=== PATIENT | female | born 2005 | race Two or more races ===

== ENCOUNTER 2024-07-16 14:28 | Emergency (ER) | payer MEDICAID, SELFPAY ==
[2024-07-16 14:30] VITALS: BMI 29.2
[2024-07-16 14:54] VITALS: BP 113/76; PULSE 96; RESP 18; TEMP 36.8; O2SAT 99
--- NOTE | 2024-07-16 14:59 | XR_ITS ---
Examination: Complete OB ultrasound, less than 14 weeks, transabdominal Date and time of exam: July 16, 2024 1511 hours INDICATIONS: Hyperemesis this month Technique: Obstetrical ultrasound images less than 14 weeks performed via transabdominal imaging Findings: A normal shaped single intrauterine gestation is present in the uterus. Uterus 9.6 x 7.3 x 9.9 cm pole 6.4 cm corresponds to 12 weeks 5 day gestational age Cardiac motion 169 bpm Adjacent small subchorionic hemorrhage 25 x 7 x 26 mm Ultrasonographic survey of visible and placental structures unremarkable. Amniotic fluid volume appears appropriate for this estimated gestational age. Right ovary 2.7 x 1.3 x 1.9 cm arterial flow Left ovary 3.1 x 1.6 x 2.1 cm arterial flow IMPRESSION: . Viable intrauterine gestation 12 weeks 5 days, recommend short-term follow-up pelvic sonography given the patient's subchorionic hemorrhage
--- NOTE | 2024-07-16 15:00 | PD.EDRME ---
Rapid Medical Screening Exam RME Arrival date/time: 07/16/24 14:28 18-year-old female presents emergency department today with complaints of nausea vomiting patient reports being approximately 13 weeks Chief Complaint: Nausea/Vomiting/Diarrhea Time Seen by Provider: 07/16/24 14:38 Vital signs: Vital Signs Temperature 98.3 F 07/16/24 14:54 Pulse Rate 96 07/16/24 14:54 Respiratory Rate 18 07/16/24 14:54 Blood Pressure 113/76 07/16/24 14:54 Pulse Oximetry (%) 99 07/16/24 14:54 Oxygen Delivery Method Room Air 07/16/24 14:54
[2024-07-16] MEDS: METOCLOPRAMIDE INJ 5 MG/ML VIAL 2 ML 10 MG IM (15:05)
[2024-07-16 16:14] LABS: Basophils % (Auto) 1 % (0-2.5); Eosinophils # (Auto) 0.1 Thou/mm3 (0.0-0.5); Eosinophils % (Auto) 1 % (0-10); Hematocrit 34.8 % (36.0-46.0); Hemoglobin 11.5 g/dL (12.0-16.0); Immature Granulocytes % (Auto) 0 % (0-0); Immature Granulocytes Auto 0.02 Thou/mm3 (0.00-0.00); Lymphocytes # (Auto) 1.2 Thou/mm3 (1.0-4.8); Lymphocytes % (Auto) 20 % (10-50); Mean Corpuscular Hemoglobin 24.7 pg (25.0-35.0); Mean Corpuscular Volume 75 fL (80-100); Monocytes # (Auto) 0.7 Thou/mm3 (0.0-0.8); Monocytes % (Auto) 11 % (0-12); Neutrophils % (Auto) 67 % (37-80); Nucleated Red Blood Cell % 0 /100 WBC (0); Platelet Count 252 Thou/mm3 (140-440); RDW Standard Deviation 41.3 fL (36.4-46.3); Red Blood Count 4.65 Miln/mm3 (4.00-5.20)
[2024-07-16 16:32] LABS: Collection Type, Urine Clean Catch
[2024-07-16 16:38] LABS: Alanine Aminotransferase 11 U/L (10-49); Albumin, Serum 4.6 gm/dL (3.5-5.0); Albumin/Globulin Ratio 1.5 (1.2-2.2); Alkaline Phosphatase 64 U/L (46-116); Anion Gap 10 (7-16); BUN/Creatinine Ratio 12 Ratio (12-20); Bilirubin,Total 0.3 mg/dL (0.3-1.2); Blood Urea Nitrogen 7 mg/dL (9-23); Calcium 9.8 mg/dL (8.3-10.6); Calcium (Corrected) 9.8 mg/dL (8.5-10.1); Chloride 101 mMol/L (98-107); Creatinine (Component) 0.6 mg/dL (0.6-1.3); Estimated Creatinine Clearance 144.9 mL/min (>60); Globulin 3.1 gm/dL (2.3-3.5); Glucose 87 mg/dL (74-106); Osmolality,Calculated 263 (275-295); Potassium 3.9 mMol/L (3.4-5.1); Sodium 133 mMol/L (136-145); Total Protein 7.7 gm/dL (5.7-8.2); eGFR > 60 See Note
[2024-07-16 16:55] LABS: Bacteria,Urine Rare; Bilirubin,Urine Negative (Negative); Blood,Urine Negative (Negative); Clarity,Urine Clear (Clear/Hazy); Color,Urine Yellow (Lt Yel-Yel); Glucose, Urine Negative (Negative); Hyaline Casts,Urine < 1 /hpf (0-1); Ketones,Urine 2+ (Negative); Leukocyte Esterase,Urine Negative (Negative); Nitrite,Urine Negative (Negative); PH,Urine 6.5 (5.0-7.0); Protein,Urine Trace (Neg - Trace); RBC,Urine 2 /hpf (0-3); Specific Gravity,Urine 1.025 (1.001-1.035); Squamous Epithelial Cell,Urine 3 /hpf (0-5); WBC,Urine 4 /hpf (0-5)
[2024-07-16 17:14] LABS: Aspartate Amino Transferase 13 U/L (0-34); Beta HCG,Quantitative 104430 mIU/mL (<5.0)
[2024-07-16 17:16] VITALS: BP 127/70; PULSE 99; RESP 18; TEMP 36.7; O2SAT 97
--- NOTE | 2024-07-16 17:35 | EDNOTE_ITS ---
ED General RME/HPI General Chief complaint: Nausea/Vomiting/Diarrhea Stated complaint: Morning sickness 13 weeks, Time Seen by Provider: 07/16/24 14:38 Arrival date/time: 07/16/24 14:28 CC: Nausea vomiting HPI patient is a G2, P1 at 13 weeks states she has had persistent nausea vomiting but a worsened episode in the past 24 hours. Patient states she was told to use the Zofran sparingly which she says she has used only once in the past 2 to 3 days. Patient is pasty looking but at the time of exam she had been received a shot of Reglan, and states that her nausea has abated. Patient denies chest pain fever chills nausea vomiting vaginal bleeding or vaginal discharge. No abdominal pain or back pain. RME / HPI RME / HPI narrative: 07/16/24 14:28 18-year-old female presents emergency department today with complaints of nausea vomiting patient reports being approximately 13 weeks Related Data Previous Rx's ?Medication ?Instructions ?Recorded prenat.vits,onel,[id number] 1 tab PO QDAY #30 tabs 03/02/22 metoclopramide HCl 10 mg tablet 10 mg PO Q6H PRN nausea and 07/16/24 (Reglan) vomiting #20 tabs Allergies Allergy/AdvReac Type Severity Reaction Status Date / Time No Known Allergies Allergy Verified 09/07/22 15:51 Review of Systems Review of Systems Narrative Review of Systems: GEN: No fever, no chills, no weight loss EYES: No discharge, no visual changes, no pain HEENT: No ear pain, no congestion, no sore throat PULM: No shortness of breath, no cough, no congestion CV: No chest pain, no dyspnea on exertion, no palpitations GI: + nausea, + vomiting, no diarrhea, no pain, no constipation : No frequency, no urgency, no dysuria MUSC/SKEL: No joint pain, no back pain SKIN: No rash PSYCH: No hallucinations, no depression HEME/LYMPH: No easy bleeding or bruising tendencies NEURO: No weakness, no headache Past Medical History Past Medical History NEUROLOGIC: Negative Neurological Disorders or Seizures CARDIAC: Negative Cardiac Disorders or Congestive Heart Failure RESPIRATORY: Negative Chronic Obstructive Pulmonary Disease (COPD) GASTROINTESTINAL: Negative Gastrointestinal Disorders, Hepatitis or Colorectal Cancer GENITOURINARY: Negative Genitourinary Disorders, Renal Disease or Prostate Cancer REPRODUCTIVE: Negative Breast Cancer, Pelvic Inflammatory Disease or Testicular Cancer MUSCULOSKELETAL: Negative Musculoskeletal Disorders or Bone Cancer ENDOCRINE: Negative Endocrine Disorders, Diabetes Mellitus Type 1 or Diabetes Mellitus Type 2 HEMATOLOGIC: Positive Anemia; Negative Blood Disorders PSYCHO/SOCIAL: Positive Psychiatric Problems, Depression, Anxiety, Behavior Problems, Self-Mutilation and Post Traumatic Stress Disorder; Negative Schizophrenia, Recreational Drug Use, Attention Deficit Disorder, Attention Deficit Hyperactivity Disorder, Depression or Eating Disorder OTHER HISTORY: Positive Hospitalization (2018 [id number] hold dts suicide attempt and thoughs); Negative Autoimmune Disease, Down Syndrome, Autism, Developmental Delay, Shingles, Falls, Blood Transfusions, Blood Transfusion Reaction, Anesthesia Reactions, Organ Transplant, Chemotherapy, Radiation Therapy, Hyperbaric Therapy, MRSA, VRSA, Vancomycin-Resistant Enterococci, Human Immunodeficiency Virus (HIV), Chicken Pox, Measles, Mumps, Rubella (Turkish Measles), Pertussis, Clostridium Difficile, Cancer, Breast Cancer, Cervical Cancer, Colorectal Cancer, Lung Cancer, Ovarian Cancer, Prostate Cancer or Testicular Cancer Family History FAMILY HISTORY: Negative Family Psychiatric Problems, Family Respiratory Disorders, Family Cardiac Disorders, Family Gastrointestinal Problems, Family Cancer, Family Surgery or Family Anesthesia Reaction Surgical History SURGICAL: Positive Section; Negative Organ Transplant Social History SMOKING STATUS: Never smoker SECOND HAND EXPOSURE: No SUBSTANCE USE: marijuana (Had used marijuana before) ED Exam Narrative Physical exam: [General: Mild discomfort not in any acute distress Head normocephalic HEENT: Within acceptable limits Neck is supple nontender Chest equal chest rise nontender to palpation Respiratory: Clear to auscultation no wheezes crackles or rubs CV: Rate rhythm is regular no murmurs rubs or clicks Abdomen is soft nontender no masses positive bowel sounds all 4 quadrants Back: No CVA tenderness no spinous process tenderness from cervical spine thoracic and lumbar spine Skin: Pale, intact no petechiae rash induration ulceration or crepitus Extremities: Moving all extremity against resistance cap refill less than 2 seconds neurosensory intact Neuro: Awake alert oriented x3 Glascow coma 15 no focal deficits] Course Quality Measures none Orders Category Date Time Status Insert IV NOW Care 07/16/24 14:59 Completed US OB <= 14 weeks fetus Stat Exams 07/16/24 14:59 Completed ABO/RH Type Stat Lab 07/16/24 15:50 Completed Beta HCG,Quantitative Stat Lab 07/16/24 15:50 Completed CBC Stat Lab 07/16/24 15:50 Completed Comprehensive Metabolic Panel Stat Lab 07/16/24 15:50 Completed UA [Urinalysis] Stat Lab 07/16/24 16:20 Completed Urine Culture Stat Lab 07/16/24 16:52 Ordered Metoclopramide Inj [Reglan Inj] Med 07/16/24 14:59 Discontinued 10 mg IM X1 ONE Sodium Chloride 0.9% 1000 ml [Ns] 1,000 ml Med 07/16/24 14:59 Discontinued IV 999 mls/hr Vital Signs Vital signs: Vital Signs Temperature 98.3 F 07/16/24 14:54 Pulse Rate 96 07/16/24 14:54 Respiratory Rate 18 07/16/24 14:54 Blood Pressure 113/76 07/16/24 14:54 Pulse Oximetry (%) 99 07/16/24 14:54 Oxygen Delivery Method Room Air 07/16/24 14:54 [facility] Patient data External records reviewed:: [facility] previous records Clinical information provided by:: patient Social determinants that could affect healthcare access:: none Patient has the following chronic illnesses:: How is presenting disease/condition affected by chronic disease/condition?: no chronic disease Evaluation data The following diagnostics were reviewed and interpreted by me:: lab results and radiology exam(s) Lab and/or radiology exams considered but not ordered:: CBC shows no significant leukocytosis anemia thrombocytopenia CMP shows a mild hyponatremia at 133 but no other electrolyte imbalances renal impairment transaminitis or T. bili elevation Urine is negative for UTI Quantitative hCG at 104,400 Ultrasound interpreted by me read by radiology shows the patient is single IUP at 12 weeks 5 days with good heart tones. Interpretation Summary: Upon assessment patient is more comfortable although mildly pale heart rate has been hovering around the 100 range, at this time I will discharge the patient home with a prescription of Reglan patient is complaining that if she is hungry and I am encouraging her to eat. Medications Medications considered but not ordered:: None Medication administrations:: Medication Administration History Discontinued Medications Sodium Chloride (Ns) 1,000 mls @ 999 mls/hr IV .Q1H1M ONE Stop: 07/16/24 15:59 Last Admin: 07/16/24 17:51 Dose: Not Given Documented By: Non-Admin Reason: Discontinued Metoclopramide HCl (Metoclopramide Inj 5 Mg/Ml Vial 2 Ml) 10 mg IM X1 ONE; Protocol Stop: 07/16/24 15:00 Last Admin: 07/16/24 15:05 Dose: 10 mg Documented By: VG None Consultations Consultation(s) initiated? (list below): No Diagnosis Differential Diagnosis ED Complaint MDM: Nausea vomiting electrolyte imbalances UTI Most likely diagnosis given after review of the tests above:: Nausea vomiting, Admission Indicated Admission indicated?: not indicated Explain why admission is indicated or not indicated:: Stable for discharge Admission Request Was there a request for admission?: No Disposition Plan Disposition Plan: Discharge Discharge Attestation Discharge Attestation: The patient and all family members were given an opportunity to ask questions and understood the discharge instructions. Discharge instructions specifically effects, indications for sooner follow up or return to the emergency department, and the expected course of current diagnosis. Patient condition: Stable Medical Decision Making Differential Diagnosis Differential Diagnosis: Nausea vomiting electrolyte imbalances UTI Lab Data 07/16/24 15:50 07/16/24 15:50 Labs: Lab Results 07/16/24 07/16/24 Range/Units 15:50 16:20 WBC 6.0 (4.5-11.0) Thou/mm3 RBC 4.65 (4.00-5.20) Miln/mm3 Hgb 11.5 L (12.0-16.0) g/dL Hct 34.8 L (36.0-46.0) % MCV 75 L (80-100) fL MCH 24.7 L (25.0-35.0) pg MCHC 33.0 (31.0-37.0) g/dl RDW Std Deviation 41.3 (36.4-46.3) fL Plt Count 252 (140-440) Thou/mm3 Neut % (Auto) 67 (37-80) % Lymph % (Auto) 20 (10-50) % [place] % (Auto) 11 (0-12) % Eos % (Auto) 1 (0-10) % Baso % (Auto) 1 (0-2.5) % Neut # (Auto) 4.0 (1.8-7.7) Thou/mm3 Lymph # (Auto) 1.2 (1.0-4.8) Thou/mm3 [place] # (Auto) 0.7 (0.0-0.8) Thou/mm3 Eos # (Auto) 0.1 (0.0-0.5) Thou/mm3 Baso # (Auto) 0.0 (0.0-0.2) Thou/mm3 Immature Gran # (Auto) 0.02 H (0.00-0.00) Thou/mm3 Absolute Nucleated RBC 0.00 (0.00-0.00) Thou/mm3 Immature Gran % 0 (0-0) % Nucleated RBC % 0 (0) /100 WBC Sodium 133 L (136-145) mMol/L Potassium 3.9 (3.4-5.1) mMol/L Chloride 101 (98-107) mMol/L Carbon Dioxide 22.0 (20.0-31.0) mMol/L Anion Gap 10 (7-16) BUN 7 L (9-23) mg/dL Creatinine 0.6 (0.6-1.3) mg/dL Estim Creat Clear Calc 144.9 (>60) mL/min eGFR > 60 (60 - ) See Note BUN/Creatinine Ratio 12 (12-20) Ratio Glucose 87 (74-106) mg/dL Calculated Osmolality 263 L (275-295) Calcium 9.8 (8.3-10.6) mg/dL Corrected Calcium 9.8 (8.5-10.1) mg/dL Total Bilirubin 0.3 (0.3-1.2) mg/dL AST 13 (0-34) U/L ALT 11 (10-49) U/L Alkaline Phosphatase 64 (46-116) U/L Total Protein 7.7 (5.7-8.2) gm/dL Albumin 4.6 (3.5-5.0) gm/dL Globulin 3.1 (2.3-3.5) gm/dL Albumin/Globulin Ratio 1.5 (1.2-2.2) Beta HCG, Quant 126664 (<5.0) mIU/mL Ur Collection Type Clean Catch Urine Color Yellow (Lt Yel-Yel) Urine Clarity Clear (Clear/Hazy) Urine pH 6.5 (5.0-7.0) Ur Specific [place] 1.025 (1.001-1.035) Urine Protein Trace (Neg - Trace) Urine Glucose (UA) Negative (Negative) Urine Ketones 2+ A (Negative) Urine Blood Negative (Negative) Urine Nitrite Negative (Negative) Urine Bilirubin Negative (Negative) Urine Urobilinogen (Auto) 2.0 (0.0-1.0) mg/dL Ur Leukocyte Esterase Negative (Negative) Urine RBC 2 (0-3) /hpf Urine WBC 4 (0-5) /hpf Ur Squamous Epith Cells 3 (0-5) /hpf Urine Bacteria Rare (None) Hyaline Casts < 1 (0-1) /hpf Blood Type O Negative Blood Bank Wristband ID Yes Discharge Plan Plan Patient Disposition: HOME (Self Care) Patient condition on transfer: Stable Prescriptions/Referrals Prescriptions/Med Rec: New metoclopramide HCl [Reglan] 10 mg tablet 10 mg PO Q6H PRN (Reason: nausea and vomiting) Qty: 20 0RF No Action prenat.vits,onel,[id number] Tablet 1 tab PO QDAY Qty: 30 0RF Referrals: Conner Costello MD [Primary Care Provider] - In 1 week Problem List Clinical Impression: , Nausea & vomiting Patient/Caregiver Discharge Instructions Print Language: [place] Stand Alone Forms: Sandra Award Info., Work/School Release, Patient Portal Info Letter PA/[employer] Supervising Physician PA/[employer] Supervising Physician: Felipe Adams ENP
== END 2024-07-16 18:04 | disposition home or self-care (01) ==
PROVIDERS: Nurse Practitioner Primary Care; Emergency Provider Emergency Medicine; PCP Family Medicine
DX: O21.9 Vomiting of pregnancy, unspecified (principal); Z3A.12 12 weeks gestation of pregnancy
CPT/HCPCS: 36415; 76801; 80053; 81001; 84702; 85025; 86900; 86901; 87086; 96372; 99284; J2765

== ENCOUNTER 2024-10-26 21:30 | Observation (INO) | payer MEDICAID, SELFPAY ==
[2024-10-26 21:48] VITALS: BP 127/84; PULSE 120
[2024-10-26 21:52] VITALS: BP 127/84; PULSE 101; RESP 18; RESP 98; TEMP 36.9; BMI 33.0
--- NOTE | 2024-10-26 22:05 | XR_ITS ---
Examination: Complete OB ultrasound greater than 14 weeks Date and time of exam: October 26, 2024 10:55 PM INDICATIONS: Patient fell today with pelvic cramping Findings: Viable intrauterine single fetus with single amniotic sac presentation transverse head maternal left Cardiac motion 158 BPM Placenta fundal grade 0 no abruption Umbilical cord insertion 3 vessel seen Amniotic fluid index 19 cm Cervix 3.5 cm Ovaries obscured by bowel gas. Composite estimated gestational age based on BPD, head circumference, abdominal circumference, femur length is 27 weeks 6 days Estimated weight 1136 g. Survey of intracranial anatomy, spinal anatomy, abdominal anatomy, four-chamber heart performed with no abnormalities identified. Impression: Viable intrauterine gestation transverse presentation Placenta fundal grade 0 no abruption. Recommend short-term follow-up as clinically warranted
== END 2024-10-27 00:47 | disposition home or self-care (01) ==
PROVIDERS: Admitting Provider Obstetrics & Gynecology; Visit Provider Obstetrics & Gynecology
DX: Z34.82 Encounter for supervision of other normal pregnancy, second trimester (principal); Z3A.27 27 weeks gestation of pregnancy
CPT/HCPCS: 59899; 76805; G0378

== ENCOUNTER 2024-10-28 15:29 | Observation (INO) | payer MEDICAID, SELFPAY ==
[2024-10-28 15:31] VITALS: TEMP 36.7; BMI 33.4
[2024-10-28 15:34] VITALS: BP 128/75; PULSE 114; RESP 18; RESP 98; TEMP 36.7
[2024-10-28 15:47] VITALS: BP 115/66; PULSE 113
--- NOTE | 2024-10-28 16:08 | XR_ITS ---
Examination: Complete OB ultrasound greater than 14 weeks Date and time of exam: October 28, 2024 1629 hours INDICATIONS: Lower abdominal and pelvic pain onset today Findings: Viable intrauterine single fetus with single amniotic sac presentation breech spine anterior Cardiac motion 145 BPM Placenta fundal grade 1 Umbilical cord insertion seen Amniotic fluid index 19.8 cm Cervix 3.0 cm closed Ovaries obscured by bowel gas. Composite estimated gestational age based on BPD, head circumference, abdominal circumference, femur length is 27 weeks 6 days Estimated weight 1085 g. Survey of intracranial anatomy, spinal anatomy, abdominal anatomy, four-chamber heart performed with no abnormalities identified. Impression: Viable intrauterine gestation breech presentation Estimated gestational age 27 weeks 6 days Placenta fundal grade 1 no abruption.
[2024-10-28 16:36] LABS: Collection Type, Urine Clean Catch
[2024-10-28 16:46] LABS: Bacteria,Urine 1+; Bilirubin,Urine Negative (Negative); Blood,Urine Negative (Negative); Color,Urine Yellow (Lt Yel-Yel); Glucose, Urine Negative (Negative); Ketones,Urine Negative (Negative); Leukocyte Esterase,Urine Positive (Negative); Nitrite,Urine Negative (Negative); PH,Urine 6.5 (5.0-7.0); Protein,Urine Trace (Neg - Trace); RBC,Urine 7 /hpf (0-3); Specific Gravity,Urine 1.026 (1.001-1.035); Squamous Epithelial Cell,Urine 14 /hpf (0-5); Urobilinogen,Urine Negative mg/dL (0.0-1.0); WBC,Urine 11 /hpf (0-5)
[2024-10-28 16:49] LABS: Clarity,Urine Hazy (Clear/Hazy)
== END 2024-10-28 17:45 | disposition home or self-care (01) ==
PROVIDERS: Admitting Provider Obstetrics & Gynecology; Visit Provider Obstetrics & Gynecology
DX: O26.892 Other specified pregnancy related conditions, second trimester (principal); R10.2 Pelvic and perineal pain; O32.1XX0 Maternal care for breech presentation, not applicable or unspecified; Z3A.27 27 weeks gestation of pregnancy
CPT/HCPCS: 59025; 59899; 76805; 81001

== ENCOUNTER 2024-11-11 10:31 | Outpatient (AMB) | payer MEDICAID, SELFPAY ==
[2024-11-11 11:06] VITALS: BP 114/76; PULSE 98; RESP 18; TEMP 36.3; O2SAT 99; BMI 34.1
--- NOTE | 2024-11-11 11:06 | AMB.OBINITIA ---
Vital Signs 11/11/24 11:06 Height 1.57 m Height Method Stated Weight 84.595 kg Weight Measurement Method Standing Scale BMI 34.1 BP 114/76 Blood Pressure Source Automatic Cuff Blood Pressure Location Left Upper Arm Position Sitting Respiration 18 Pulse 98 Pulse Source Monitor Temp 97.3 F Temp Source Oral Pulse Oximetry (%) 99 Oxygen Delivery Method Room Air Allergies/Home Meds Allergies & Medications Allergies No Known Allergies Allergy (Verified 11/11/24 11:08) Medication Reconciliation prenat.vits,onel,[id number] 1 tab PO QDAY #30 tabs 03/02/22 [Rx Confirmed 11/11/24] ferrous sulfate 325 mg (65 mg iron) tablet,delayed release 325 mg PO BID 90 days #180 tabs 11/11/24 [Rx] vitamins with calcium no.72-iron 29 mg-folic acid 1 mg tablet ( Plus) 1 tab PO QDAY 90 days #90 tabs 11/11/24 [Rx] Intake Visit Data Collection New Patient or Established: Established Patient (seen at [facility] within 3 years) Reason for Visit:: INITIAL CARE Seen by Clinical Staff ONLY (RN/MA): No 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 1. Little interest or pleasure in doing things: not at all 2. Feeling down, depressed, or hopeless: not at all Total score: 0 PHQ-9 3. Trouble falling or staying asleep, or sleeping too much: Not at all 4. Feeling tired or having little energy: Not at all 5. Poor appetite or overeating: Not at all 6. Feeling bad about yourself - or that you are a failure or have let yourself or your family down: Not at all 7. Trouble concentrating on things, such as reading the newspaper or watching television: Not at all 8. Moving or speaking so slowly that other people could have noticed? - Or the opposite - being so fidgety or restless that you have been moving around a lot more than usual: not at all 9. Thoughts that you would be better off or of hurting yourself in some way: Not at all Total score: 0 Source: Developed by Drs. Ace León, Gisel Madsen, Gabino Dimas and colleagues, with an educational sreedhar from [employer]. Depression screen completed yes Social History Living Situation History Marital Status: Lives With: Family Housing: House Tobacco History Smoking Status: Never smoker Second Hand Smoke Exposure: No Alcohol History Alcohol Intake: Never Domestic Abuse History Do You Feel Safe at Home: Yes Past Medical History Past Medical History Have you ever been diagnosed with any of the following: Neurological Problems Cerebrovascular Accident (CVA): No Transient Ischemic Attacks (TIA): No Dementia: No Alzheimer's Disease: No Seizures: No Epilepsy: No Multiple Sclerosis: No Cardiology Problems Myocardial Infarction: No Cardiac Arrhythmia: No Atrial Fibrillation: No Angina: No Heart Murmur: No Coronary Artery Disease: No Atherosclerotic Heart Disease: No Peripheral Vascular Disease: No Aneurysm: No Congestive Heart Failure: No Edema: No Pericarditis: No Respiratory Problems Chronic Obstructive Pulmonary Disease (COPD): No Asthma: No Bronchitis: No Emphysema: No Pneumonia: No Tuberculosis: No Hx Cough: No Cough: No Wheezing: No Chest Deformities: No Smoking: No Smoking Cessation Counseling: No Smoking Exposure: No Tobacco Use: No Stomache/Intestinal Problems Liver Cancer: No Hepatitis: No Cirrhosis: No Pancreatic Cancer: No Pancreatitis: No Celiac Disease: No Colorectal Cancer: No Crohn's Disease: No Obstructive Bowel: No Genital/Urinary Problems Chronic Kidney Disease: No Renal Disease: No Kidney Stones: No Polycystic Kidney Disease: No Neurogenic Bladder: No Reproductive Problems Breast Cancer: No Endometriosis: No Fibroids: No Genital Herpes: No Gonorrhea: No Pelvic Inflammatory Disease: No Previous Pregnancies: Yes Syphilis: No Uterine Prolapse: No Musculoskeletal Problems Muscular Dystrophy: No Myasthenia Gravis: No Marfan's Syndrome: No Bone Cancer: No Fibromyalgia: No Fractures: No Degenerative Joint Disease: No Osteomyelitis: No Head,Eye,Nose,Throat Problems Cataracts: No Glaucoma: No Blind: No Retinal Detachment: No Endocrine Problems Diabetes Mellitus Type 1: No Diabetes Mellitus Type 2: No Igor's Syndrome: No Edwards's Disease: No Hyperthyroidism: No Blood Problems Anemia: Yes Psychologic Problems Schizophrenia: No Recreational Drug Use: No Depression: Yes Anxiety: Yes Behavior Problems: Yes Self-Mutilation: Yes Attention Deficit Disorder: No Attention Deficit Hyperactivity Disorder: No Depression: No Post Traumatic Stress Disorder: Yes Eating Disorder: No Other Problems Hospitalization: Yes (2018 5150 hold dts suicide attempt and thoughs) Down Syndrome: No Autism: No Developmental Delay: No Shingles: No Falls: No Blood Transfusions: No Blood Transfusion Reaction: No Anesthesia Reactions: No Organ Transplant: No Chemotherapy: No Radiation Therapy: No Hyperbaric Therapy: No MRSA: No VRSA: No Vancomycin-Resistant Enterococci: No Human Immunodeficiency Virus (HIV): No Chicken Pox: No Measles: No Mumps: No Rubella (Lao Measles): No Pertussis: No Clostridium Difficile: No Cancer: No Cervical Cancer: No Lung Cancer: No Ovarian Cancer: No Surgical History Angioplasty: No Appendectomy: No Bariatric Surgery: No Additional Surgical History: C SECTION, ETOPIC History of Present Illness HPI Narrative 19-year-old 3 para 1 for first visit to [facility] OB clinic. Last period April 15, 2024. This gives a due date January 20, 2025. So patient is 30 weeks 1 day today. Reports movement. She reports that she had a period of some pressure that came and went. But it resolved. She denies social habits. She is a previous x 1. And she has a history of anxiety and depression. Patient is not taking any meds for her anxiety or depression. She last took them in March of last year. And she has a an appointment with behavioral health at [facility] that is pending. Patient is O-. She has anemia with the her last H&H was 31. Platelets were normal. Drug screen negative. Hep B negative. HIV negative. Hep C negative. GC and Chlamydia were negative. Rubella immune. RPR nonreactive. Reports movement. Denies leaking or vaginal bleeding. OB Initial Visit OB Flowsheet OB Flowsheet Initial Weight: Not Recorded Date <del>?</del> EGA Weight Edema CTX Effacement BP Fundal ht Pres Dilation Effacement Station Visit Note Alb Glu FHR Mov 11/11/24 <del>?</del> 30w 1d 84.595 kg absent absent 114/76 30 This is a 19-year-old 3 para 1 she is 30 weeks 1 day today based on LMP. She comes for her first visit to [facility] OB clinic. Her LMP is April 15, 2024. And this gives a due date of January 20, 2025. History of previous x 1. Patient has a history anxiety and depression and she sees behavioral health for that. She is currently not taking any psych meds. She denies social habits. My plan is to order her ultrasound with maternal- medicine. I ordered 1 hour Glucola. Tdap today. Refilled vitamins she will take 1 p.o. daily. And then I refilled her iron 325 mg she takes twice a day. Discussed high iron foods and precautions. Patient reports that she did get RhoGAM with this at her first visit with Dr. Collins at [facility]. PTL precautions reviewed with patient. And will refer patient to OB for previous management 146 active Menstrual History Menstrual reliability: definite Flow: normal Menstrual regularity: irregular Monthly: No Age at menarche: 10 On control pills at conception: No Date of positive home test: 05/26/24 Associated symptoms (LMP): Reports fatigue OB History : 3 Para: 1 Hx # Pregnancies: 1 Hx Total # of Abortions (Spontaneous & Elective): 1 # of Living Children: 1 Delivery History 1st : Child's name: ALEXEY date: 05/08/22 sex: female Delivery type: Delivery complications: NONE History of depression before or after : No Infection History & Risk Evaluation History of STDs: none Genetic Screening & History Genetic Screening/Teratology Counseling - Includes patient, baby's father, or anyone in either family with: 1. Patient's age 35 years or older as of estimated date of delivery: No 2. Thalassemia (Amharic, Upper Sorbian, Mediterranean, or Background); MCV less than 80: No 3. Neural Tube Defect (Meningomyelocele, Spina Bifida, or Anencephaly): No (patient denies history) 4. Congenital Heart Defect: No 5. Down Syndrome: No 6. Chaim-Sachs (Ashkenazi Islam, Cajun, Eritrean Chadian): No 7. Lianna Disease (Ashkenazi Islam): No 8. Familial Dysautonomia (Ashkenazi Islam): No 9. Sickle Cell Disease or Trait (): No 10. Hemophilia or other blood disorders: No 11. Muscular Dystrophy: No 12. Cystic Fibrosis: No 13. Julia's Chorea: No 14. Mental Retardation/Autism: Yes 15. Other inherited genetic or chromosomal disorder: No 16. Maternal Metabolic Disorder (EG,TYPE 1 Diabetes, PKU): No 17. Patient or baby's father had a child with defects not listed above: No 18. Recurrent loss or a stillbirth: Yes (sabx1) 19. Medications (including supplements, vitamins, herbs or otc drugs)/illicit/recreational drugs/alcohol since last menstrual period: No 20. Any other: No Comments/Counseling: discussed history of mental retardation with patient, she denied history to me Infection History 1. Live with someone with TB or exposed to TB: No 2. Rash or viral illness since last menstrual period: No 3. Hepatitis B,C: No Other (see comments) Source: [employer] Review of Systems Review of Systems Systems Reviewed: All systems reviewed, normal except as documented Constitutional Constitutional: Reports fatigue Endocrine Endocrine: Reports fatigue Exam General Limitations: no limitations General Appearance: alert, in no apparent distress, comfortable, cooperative, healthy appearing, well developed and well groomed Head Head exam: atraumatic, normocephalic and normal inspection Chest Chest inspection: Present normal inspection and symmetric chest wall rise Resp Respiratory exam: Present normal lung sounds bilaterally Card Cardiovascular exam: Present regular rate, normal rhythm and normal heart sounds Abdominal Abdominal exam: Present soft (fh:32, fht 146) and normal bowel sounds Psych Psychiatric exam: Present normal affect and normal mood Assessment & Plan Diagnosis / Problem List (1) Encounter for supervision of normal in multigravida in second trimester: Status: Acute (2) Encounter for maternal care for low transverse scar from previous delivery: Status: Acute Plan schedule anatomy scan and evaluate placenta with mfm, refill PNV and iron bid, discuss iron foods, order 1 hr gtt, discuss diet and exercise. review PTL precaution, TDAP today, review labs. schedule with OB nv for management Additional Plan Follow Up: 2 Weeks (for obc) Office Procedures OB Clinic LOC & Office Proc's Nursing/Assessment Patient Status: Established Patient OB Clinic Nursing Assessment: Medication Reconciliation, Update PMH in EMR and Vital Signs OB Clinic Coordination of Care: Complex Care and Chronic Disease 1-5, Consent,records obtained, informed consent, Education Simp Pt/Fam, Lab and Imaging orders, Results/Orders obtained and Staff clarify orders Special Needs: Heart tones Established Patient Charge Established Patient Point Assignment: 135 Established Patient Point Charge: EP Level 4 (120-155) Injection/Vaccine Admin Admin 1st Vaccine: Yes Immunizations Adacel(Tdap Adolesn/Adult)(PF) 2 Lf-(2.5-5-3-5)-5 Lf/0.5 mL IM syringe Performing Provider: Jessica Easton CNM Performing Location: [facility] CRYPTOLOGIC TECHNICIAN OPERATOR/ANALYST Clinic Administered by: Yana Gant MA on 11/11/24 14:08 Dose Route Admin Location Dispensed Lot Number Expiration Date [facility] Gear Hobber Operator 0.5 mL IM Left Deltoid 0.5 mL [id number] 10/18/26 20824-227-79 [employer] Interactive VIS Given Date VIS Provided VIS Publication Date 11/11/24 Single Vaccine 24 Eligibility Eligibility Date Funding Source Public Non-[facility] Administration Comments: PATIENT WAITED 15 MIN NO REACTION
== END 2024-11-11 11:32 | disposition home or self-care (01) ==
LOC: HODSOBC 10:31
PROVIDERS: Supervising Provider Advanced Practice Midwife; Visit Provider Advanced Practice Midwife
DX: O09.893 Supervision of other high risk pregnancies, third trimester (principal); O34.211 Maternal care for low transverse scar from previous cesarean delivery; O09.13 Supervision of pregnancy with history of ectopic pregnancy, third trimester; Z3A.30 30 weeks gestation of pregnancy; Z23 Encounter for immunization
CPT/HCPCS: 90471; 90715; 99214; G0463

== ENCOUNTER 2024-12-02 08:49 | Outpatient (AMB) | payer MEDICAID, SELFPAY ==
[2024-12-02 09:05] VITALS: BP 126/79; PULSE 118; RESP 18; TEMP 36.2; O2SAT 99; BMI 36.4
--- NOTE | 2024-12-02 09:05 | OBCLNT_ITS ---
Vital Signs 12/02/24 09:05 Height 1.57 m Height Method Stated Weight 89.925 kg Weight Measurement Method Standing Scale BMI 36.4 BP 126/79 Blood Pressure Source Automatic Cuff Blood Pressure Location Left Upper Arm Position Sitting Respiration 18 Pulse 118 H Pulse Source Monitor Temp 97.2 F Temp Source Oral Pulse Oximetry (%) 99 Oxygen Delivery Method Room Air Allergies/Home Meds Allergies & Medications Allergies No Known Allergies Allergy (Verified 12/02/24 09:06) Medication Reconciliation prenat.vits,onel,[id number] 1 tab PO QDAY #30 tabs 03/02/22 [Rx Confirmed 12/02/24] ferrous sulfate 325 mg (65 mg iron) tablet,delayed release 325 mg PO BID 90 days #180 tabs 11/11/24 [Rx Confirmed 12/02/24] vitamins with calcium no.72-iron 29 mg-folic acid 1 mg tablet ( Plus) 1 tab PO QDAY 90 days #90 tabs 11/11/24 [Rx Confirmed 12/02/24] Intake Visit Data Collection New Patient or Established: Established Patient (seen at [facility] within 3 years) Reason for Visit:: obc Seen by Clinical Staff ONLY (RN/MA): No Family Resource Specialist Required: No Do You Feel Safe at Home: Yes Authorities Contacted: N/A PCP or OBGYN visit in last 3 months: Yes Date of Last PCP or OBGYN visit: 11/11/24 Hx Now: Yes Are you currently on any form of Control: No Pain Present Currently: No Pain Scale Used: Osman-Marte/Numerical Pain scale:: 0 Smoking Status Smoking Status: Never smoker Questionnaires Covid-19 Vaccine Questionnaire Has patient been vacinated for Covid-19 Have you been vacinated for Covid-19: Yes PHQ-9 PHQ-2 Over the last 2 weeks, how often have you been bothered by any of the following problems? 1. Little interest or pleasure in doing things: not at all 2. Feeling down, depressed, or hopeless: not at all Total score: 0 PHQ-9 3. Trouble falling or staying asleep, or sleeping too much: Not at all 4. Feeling tired or having little energy: Not at all 5. Poor appetite or overeating: Not at all 6. Feeling bad about yourself - or that you are a failure or have let yourself or your family down: Not at all 7. Trouble concentrating on things, such as reading the newspaper or watching television: Not at all 8. Moving or speaking so slowly that other people could have noticed? - Or the opposite - being so fidgety or restless that you have been moving around a lot more than usual: not at all 9. Thoughts that you would be better off or of hurting yourself in some way: Not at all Total score: 0 If you checked off any problems, how difficult have these problems made it for you to do your work, take care of things at home, or get along with other people?: not difficult at all Source: Developed by Drs. Ace León, Gisel Madsen, Gabino Dimas and colleagues, with an educational sreedhar from [employer]. Depression screen completed yes Social History Living Situation History Marital Status: Life Partner Lives With: Family Housing: House Tobacco History Smoking Status: Never smoker Second Hand Smoke Exposure: No Alcohol History Alcohol Intake: Never Domestic Abuse History Do You Feel Safe at Home: Yes Past Medical History Past Medical History Have you ever been diagnosed with any of the following: Neurological Problems Cerebrovascular Accident (CVA): No Transient Ischemic Attacks (TIA): No Dementia: No Alzheimer's Disease: No Seizures: No Epilepsy: No Multiple Sclerosis: No Cardiology Problems Myocardial Infarction: No Cardiac Arrhythmia: No Atrial Fibrillation: No Angina: No Heart Murmur: No Coronary Artery Disease: No Atherosclerotic Heart Disease: No Peripheral Vascular Disease: No Aneurysm: No Congestive Heart Failure: No Edema: No Pericarditis: No Respiratory Problems Chronic Obstructive Pulmonary Disease (COPD): No Asthma: No Bronchitis: No Emphysema: No Pneumonia: No Tuberculosis: No Hx Cough: No Cough: No Wheezing: No Chest Deformities: No Smoking: No Smoking Cessation Counseling: No Smoking Exposure: No Tobacco Use: No Stomache/Intestinal Problems Liver Cancer: No Hepatitis: No Cirrhosis: No Pancreatic Cancer: No Pancreatitis: No Celiac Disease: No Colorectal Cancer: No Crohn's Disease: No Obstructive Bowel: No Genital/Urinary Problems Renal Disease: No Kidney Stones: No Polycystic Kidney Disease: No Neurogenic Bladder: No Reproductive Problems Breast Cancer: No Endometriosis: No Fibroids: No Genital Herpes: No Gonorrhea: No Pelvic Inflammatory Disease: No Previous Pregnancies: Yes Syphilis: No Uterine Prolapse: No Musculoskeletal Problems Muscular Dystrophy: No Myasthenia Gravis: No Marfan's Syndrome: No Bone Cancer: No Fibromyalgia: No Fractures: No Degenerative Joint Disease: No Osteomyelitis: No Head,Eye,Nose,Throat Problems Cataracts: No Glaucoma: No Blind: No Retinal Detachment: No Endocrine Problems Diabetes Mellitus Type 1: No Diabetes Mellitus Type 2: No Igor's Syndrome: No Clinch's Disease: No Hyperthyroidism: No Blood Problems Anemia: Yes Psychologic Problems Schizophrenia: No Recreational Drug Use: No Depression: Yes Anxiety: Yes Behavior Problems: Yes Self-Mutilation: Yes Attention Deficit Disorder: No Attention Deficit Hyperactivity Disorder: No Depression: No Post Traumatic Stress Disorder: Yes Eating Disorder: No Other Problems Hospitalization: Yes (2018 5150 hold dts suicide attempt and thoughs) Down Syndrome: No Autism: No Developmental Delay: No Shingles: No Falls: No Blood Transfusions: No Blood Transfusion Reaction: No Anesthesia Reactions: No Organ Transplant: No Chemotherapy: No Radiation Therapy: No Hyperbaric Therapy: No MRSA: No VRSA: No Vancomycin-Resistant Enterococci: No Human Immunodeficiency Virus (HIV): No Chicken Pox: No Measles: No Mumps: No Rubella (Kyrgyz Measles): No Pertussis: No Clostridium Difficile: No Cancer: No Cervical Cancer: No Lung Cancer: No Ovarian Cancer: No Surgical History Angioplasty: No Appendectomy: No Bariatric Surgery: No Care OB Visit Log OB Flowsheet Initial Weight: Not Recorded Date -?-?-?-?-?-?-?-?-?-?-?-?- EGA Weight Edema CTX Effacement BP Fundal ht Pres Dilation Effacement Station Visit Note Alb Glu FHR Mov 11/11/24 -?-?-?-?-?-?-?-?-?-?-?-?- 30w 1d 84.595 kg absent absent 114/76 30 This is a 19-year-old 3 para 1 she is 30 weeks 1 day today based on LMP. She comes for her first visit to [facility] OB clinic. Her LMP is April 15, 2024. And this gives a due date of January 20, 2025. History of previous x 1. Patient has a history anxiety and depression and she sees behavioral health for that. She is currently not taking any psych meds. She denies social habits. My plan is to order her ultrasound with maternal- medicine. I ordered 1 hour Glucola. Tdap today. Refilled vitamins she will take 1 p.o. daily. And then I refilled her iron 325 mg she takes twice a day. Discussed high iron foods and precautions. Patient reports that she did get RhoGAM with this at her first visit with Dr. Collins at [facility]. PTL precautions reviewed with patient. And will refer patient to OB for previous C- section management 146 active 12/02/24 -?-?-?-?-?-?-?-?-?-?-?-?- 33w 1d 89.925 kg absent absent 126/79 30 cephalic fetus active, no PTL complaints. increased back pain,pressure, fetus active. c/o increased pulse rate. Pulse today is 80, regular, no resp distress, fkc bid. patient wants to deliver at [facility], discussed tranc=sfer of care with patient. fkc bid. rtc 2 week, for repeat c/s 141 ac tive EVERT Calculator Estimated Delivery Date Method Current WG Current Estimate 01/19/25 Ultrasound #2 33w 1d Other Estimates 01/20/25 LMP (Certain) 33w 0d 01/23/25 Ultrasound #1 32w 4d Assessment & Plan Diagnosis / Problem List (1) care, subsequent in third trimester: Status: Acute Plan Discussed labor precautions. Comfort measures for discomforts of . Kick counts twice a day. Increase fluids. Schedule with OB in 2 weeks for scheduling. Discussed transfer care with patient if she decides to deliver at [facility]. Additional Plan Follow Up: 2 Weeks (OBC) Office Procedures OB Clinic LOC & Office Proc's Nursing/Assessment Patient Status: Established Patient OB Clinic Nursing Assessment: BP Monitoring, Medication Reconciliation, Update PMH in EMR and Vital Signs OB Clinic Coordination of Care: Education Complex Pt/Fam, Consent,records ob tained, informed consent, Lab and Imaging orders, Results/Orders obtained and Staff clarify orders Established Patient Charge Established Patient Point Assignment: 100 Established Patient Point Charge: EP Level 3 (80-115)
== END 2024-12-02 09:18 | disposition home or self-care (01) ==
LOC: HODSOBC 08:49
PROVIDERS: PCP Advanced Practice Midwife; Referring Provider Advanced Practice Midwife; Supervising Provider Advanced Practice Midwife; Visit Provider Advanced Practice Midwife
DX: O09.293 Supervision of pregnancy with other poor reproductive or obstetric history, third trimester (principal); Z3A.33 33 weeks gestation of pregnancy; O34.219 Maternal care for unspecified type scar from previous cesarean delivery
CPT/HCPCS: 99213; G0463

== ENCOUNTER 2024-12-15 10:08 | Outpatient (AMB) | payer MEDICAID, SELFPAY ==
[2024-12-15 10:31] VITALS: BP 120/71; PULSE 118; RESP 18; TEMP 36.2; O2SAT 97; BMI 37.0
--- NOTE | 2024-12-15 10:31 | OBCLNT_ITS ---
Vital Signs 12/15/24 10:31 Height 1.57 m Height Method Stated Weight 91.285 kg Weight Measurement Method Standing Scale BMI 37.0 BP 120/71 Blood Pressure Source Automatic Cuff Blood Pressure Location Left Upper Arm Position Sitting Respiration 18 Pulse 118 H Pulse Source Monitor Temp 97.2 F Temp Source Oral Pulse Oximetry (%) 97 Oxygen Delivery Method Room Air Allergies/Home Meds Allergies & Medications Allergies No Known Allergies Allergy (Verified 12/15/24 10:32) Medication Reconciliation prenat.vits,onel,arh-[id number]-[id number] 1 tab PO QDAY #30 tabs 03/02/22 [Rx Confirmed 12/15/24] ferrous sulfate 325 mg (65 mg iron) tablet,delayed release 325 mg PO BID 90 days #180 tabs 11/11/24 [Rx Confirmed 12/15/24] vitamins with calcium no.72-iron 29 mg-folic acid 1 mg tablet ( Plus) 1 tab PO QDAY 90 days #90 tabs 11/11/24 [Rx Confirmed 12/15/24] Intake Visit Data Collection New Patient or Established: Established Patient (seen at [facility] within 3 years) Reason for Visit:: - Scheduling - High-risk concerns - Intermittent high blood pressure during - Contractions experienced in the morning Seen by Clinical Staff ONLY (RN/MA): No Day Light Relief Operator Required: No Do You Feel Safe at Home: Yes Authorities Contacted: N/A PCP or OBGYN visit in last 3 months: Yes Date of Last PCP or OBGYN visit: 12/02/24 Hx Now: Yes Are you currently on any form of Control: No Pain Present Currently: No Pain Scale Used: Osman-Marte/Numerical Pain scale:: 0 Smoking Status Smoking Status: Never smoker Questionnaires Covid-19 Vaccine Questionnaire Has patient been vacinated for Covid-19 Have you been vacinated for Covid-19: Yes PHQ-9 PHQ-2 Over the last 2 weeks, how often have you been bothered by any of the following problems? 1. Little interest or pleasure in doing things: not at all 2. Feeling down, depressed, or hopeless: not at all Total score: 0 PHQ-9 3. Trouble falling or staying asleep, or sleeping too much: Not at all 4. Feeling tired or having little energy: Not at all 5. Poor appetite or overeating: Not at all 6. Feeling bad about yourself - or that you are a failure or have let yourself or your family down: Not at all 7. Trouble concentrating on things, such as reading the newspaper or watching television: Not at all 8. Moving or speaking so slowly that other people could have noticed? - Or the opposite - being so fidgety or restless that you have been moving around a lot more than usual: not at all 9. Thoughts that you would be better off or of hurting yourself in some way: Not at all Total score: 0 If you checked off any problems, how difficult have these problems made it for you to do your work, take care of things at home, or get along with other people?: not difficult at all Source: Developed by Drs. Ace León, Gisel Madsen, Gabino Dimas and colleagues, with an educational sreedhar from [employer]. 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 - Patient reports: - Some contractions experienced this morning, which resolved spontaneously - Blood pressure that goes up and down - Unclear if this is a -specific issue or pre-existing condition - No reported vaginal bleeding or other concerning symptoms - Lab slip for glucola test given at previous visit, but test not yet completed - Transferred care from previous provider who suggested early due to perceived high-risk status - Reason for high-risk designation not specified No contractions/ LOF/VB, reports good FM No EUBANKS/VC/RUQ/Epig pain Care OB Visit Log OB Flowsheet Initial Weight: Not Recorded Date -?-?-?-?-?-?-?-?-?-?-?-?- EGA Weight BP Alb Glu CTX Pres Fundal ht FHR Mov Dilation Station Effacement Hx Notes Visit Note 11/11/24 -?-?-?-?-?-?-?-?-?-?-?-?- 30w 1d 84.595 kg 114/76 absent 30 146 ac tive This is a 19-year-old 3 para 1 she is 30 weeks 1 day today based on LMP. She comes for her first visit to [facility] OB clinic. Her LMP is April 15, 2024. And this gives a due date of January 20, 2025. History of previous x 1. Patient has a history anxiety and depression and she sees behavioral health for that. She is currently not taking any psych meds. She denies social habits. My plan is to order her ultrasound with maternal- medicine. I ordered 1 hour Glucola. Tdap today. Refilled vitamins she will take 1 p.o. daily. And then I refilled her iron 325 mg she takes twice a day. Discussed high iron foods and precautions. Patient reports that she did get RhoGAM with this at her first visit with Dr. Collins at [facility]. PTL precautions reviewed with patient. And will refer patient to OB for previous C- section management 12/02/24 -?-?-?-?-?-?-?-?-?-?-?-?- 33w 1d 89.925 kg 126/79 absent cephalic 30 141 active fetus active, no PTL complaints. increased back pain,pressure, fetus active. c/o increased pulse rate. Pulse today is 80, regular, no resp distress, fkc bid. patient wants to deliver at [facility], discussed tranc=sfer of care with patient. fkc bid. rtc 2 week, for repeat c/s 12/15/24 -?-?-?-?-?-?-?-?-?-?-?-?- 35w 0d 91.285 kg 120/71 Subjective: Rosie Morton, , at 35 weeks GA, pr esents for routine care. No CTX/LOF/VB. Reports . No EUBANKS/VC/epigastric pain. History of one previous , Rh-negative blood type, lab slip given for glucola test not yet performed. Objective: Fundal height: 35, FHT: 158-160, Positio n: unknown Assessment & Plan: Assessment & Plan: - Reassurance, normal course - Routine labs: glucolatase test pending - Flu/Tdap given? - Plan for GBS culture at 36 weeks - Review of delivery plans EVERT Calculator Estimated Delivery Date Method Current WG Current Estimate 01/19/25 Ultrasound #2 35w 4d Other Estimates 01/20/25 LMP (Certain) 35w 3d 01/23/25 Ultrasound #1 35w 0d Exam General General Appearance: alert, in no apparent distress and healthy appearing Head Head exam: atraumatic Neck Neck exam: Present normal inspection and trachea midline Chest Chest inspection: Present normal inspection and symmetric chest wall rise External exam: Present normal external exam; Absent tenderness Neuro Neurological exam: Present oriented X3 Psych Psychiatric exam: Present normal affect and normal mood Office Procedures OB Clinic LOC & Office Proc's Nursing/Assessment Patient Status: Established Patient OB Clinic Nursing Assessment: Medication Reconciliation, Update PMH in EMR and Vital Signs OB Clinic Coordination of Care: Education Complex Pt/Fam, Consent,records obtained, informed consent, Lab and Imaging orders and Staff clarify orders Special Needs: Heart tones Established Patient Charge Established Patient Point Assignment: 110 Established Patient Point Charge: EP Level 3 (80-115) Assessment & Plan Diagnosis / Problem List (1) care, subsequent in third trimester: Status: Acute (2) Encounter for maternal care for low transverse scar from previous delivery: Status: Acute Plan Problem List - , high risk - Previous section - Rh-negative blood type - Fluctuating blood pressure Assessment - at 35 weeks 0 days gestation with EVERT 01/19/2025 - History of one previous section - Rh-negative blood type - Reports intermittent elevated blood pressure during - Experienced contractions this morning, self-resolved - heart rate 158-160 bpm, noted as normal - labs reported as above (specific results not provided) - Glucola test not yet completed Plan - Schedule at 39 weeks gestation - Call hospital to book date and inform patient - Complete pending glucolatase lab test within the next week - Admission scheduled for 12/18/2024 Educated the patient on labor signs, including regular contractions, lower back pain, and changes in vaginal discharge. Advised avoiding heavy lifting and getting adequate rest. Instructed to contact the office immediately if any signs occur. Discussed the importance of a balanced diet rich in folic acid, iron, and calcium, and provided a list of recommended and to-avoid foods. Emphasized avoiding high-sugar foods to reduce gestational diabetes risk. Encouraged hydration and frequent, small meals for energy..
== END 2024-12-15 10:47 | disposition home or self-care (01) ==
LOC: HODSOBC 10:08
PROVIDERS: Supervising Provider Obstetrics & Gynecology; Visit Provider Obstetrics & Gynecology
DX: O09.293 Supervision of pregnancy with other poor reproductive or obstetric history, third trimester (principal); Z3A.35 35 weeks gestation of pregnancy; O34.211 Maternal care for low transverse scar from previous cesarean delivery; O26.893 Other specified pregnancy related conditions, third trimester; Z67.91 Unspecified blood type, Rh negative
CPT/HCPCS: 99213; G0463

== ENCOUNTER 2024-12-23 08:54 | Outpatient (AMB) | payer MEDICAID, SELFPAY ==
[2024-12-23 09:18] VITALS: BP 133/82; PULSE 111; RESP 22; TEMP 36.5; O2SAT 97; BMI 37.0
--- NOTE | 2024-12-23 09:18 | OBCLNT_ITS ---
Vital Signs 12/23/24 09:18 Height 1.57 m Height Method Stated Weight 91.229 kg Weight Measurement Method Standing Scale BMI 37.0 BP 133/82 H Blood Pressure Source Automatic Cuff Blood Pressure Location Right Upper Arm Position Sitting Respiration 22 H Pulse 111 H Pulse Source Monitor Temp 97.7 F Temp Source Oral Pulse Oximetry (%) 97 Oxygen Delivery Method Room Air Allergies/Home Meds Allergies & Medications Allergies No Known Allergies Allergy (Verified 12/23/24 09:20) Medication Reconciliation prenat.vits,onel,[id number]-[id number] 1 tab PO QDAY #30 tabs 03/02/22 [Rx Confirmed 12/23/24] ferrous sulfate 325 mg (65 mg iron) tablet,delayed release 325 mg PO BID 90 days #180 tabs 11/11/24 [Rx Confirmed 12/23/24] vitamins with calcium no.72-iron 29 mg-folic acid 1 mg tablet ( Plus) 1 tab PO QDAY 90 days #90 tabs 11/11/24 [Rx Confirmed 12/23/24] Intake Visit Data Collection New Patient or Established: Established Patient (seen at [facility] within 3 years) Reason for Visit:: - Routine care at 36 weeks gestation - History of previous section Seen by Clinical Staff ONLY (RN/MA): No Transit Operations Supervisor Required: No Do You Feel Safe at Home: Yes Authorities Contacted: N/A PCP or OBGYN visit in last 3 months: Yes Hx Now: Yes Are you currently on any form of Control: No Pain Present Currently: No Pain Scale Used: Osman-Marte/Numerical Pain scale:: 0 Smoking Status Smoking Status: Never smoker Questionnaires Covid-19 Vaccine Questionnaire Has patient been vacinated for Covid-19 Have you been vacinated for Covid-19: Yes PHQ-9 PHQ-2 Over the last 2 weeks, how often have you been bothered by any of the following problems? 1. Little interest or pleasure in doing things: not at all 2. Feeling down, depressed, or hopeless: not at all Total score: 0 PHQ-9 3. Trouble falling or staying asleep, or sleeping too much: Not at all 4. Feeling tired or having little energy: Not at all 5. Poor appetite or overeating: Not at all 6. Feeling bad about yourself - or that you are a failure or have let yourself or your family down: Not at all 7. Trouble concentrating on things, such as reading the newspaper or watching television: Not at all 8. Moving or speaking so slowly that other people could have noticed? - Or the opposite - being so fidgety or restless that you have been moving around a lot more than usual: not at all 9. Thoughts that you would be better off or of hurting yourself in some way: Not at all Total score: 0 Source: Developed by Drs. Ace León, Gisel Madsen, Gabino Dimas and colleagues, with an educational sreedhar from [employer]. 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 - Patient has a history of previous section. - She is scheduled for a repeat on January 18, 2025. - Patient reports: - No contractions - Active movement - Overall, everything going good - Patient initially refused Group B Streptococcus (GBS) swab but agreed after explanation. No contractions/ LOF/VB, reports good FM No EUBANKS/VC/RUQ/Epig pain Care OB Visit Log OB Flowsheet Initial Weight: Not Recorded Date -?-?-?-?-?-?-?-?-?-?-?-?- EGA Weight BP Alb Glu CTX Pres Fundal ht FHR Mov Dilation Station Effacement Hx Notes Visit Note 11/11/24 -?-?-?-?-?-?-?-?-?-?-?-?- 30w 0d 84.595 kg 114/76 absent 30 146 ac tive This is a 19-year-old 3 para 1 she is 30 weeks 1 day today based on LMP. She comes for her first visit to [facility] OB clinic. Her LMP is April 15, 2024. And this gives a due date of January 20, 2025. History of previous x 1. Patient has a history anxiety and depression and she sees behavioral health for that. She is currently not taking any psych meds. She denies social habits. My plan is to order her ultrasound with maternal- medicine. I ordered 1 hour Glucola. Tdap today. Refilled vitamins she will take 1 p.o. daily. And then I refilled her iron 325 mg she takes twice a day. Discussed high iron foods and precautions. Patient reports that she did get RhoGAM with this at her first visit with Dr. Collins at [facility]. PTL precautions reviewed with patient. And will refer patient to OB for previous C- section management 12/02/24 -?-?-?-?-?-?-?-?-?-?-?-?- 33w 0d 89.925 kg 126/79 absent cephalic 30 141 active fetus active, no PTL complaints. increased back pain,pressure, fetus active. c/o increased pulse rate. Pulse today is 80, regular, no resp distress, fkc bid. patient wants to deliver at [facility], discussed tranc=sfer of care with patient. fkc bid. rtc 2 week, for repeat c/s 12/15/24 -?-?-?-?-?-?-?-?-?-?-?-?- 34w 6d 91.285 kg 120/71 Subjective: Rosie Morton, , at 35 weeks GA, pr esents for routine care. No CTX/LOF/VB. Reports . No EUBANKS/VC/epigastric pain. History of one previous c- section, Rh-negative blood type, lab slip given for glucola test not yet performed. Objective: Fundal height: 35, FHT: 158-160, Positio n: unknown Assessment & Plan: Assessment & Plan: - Reassurance, normal course - Routine labs: glucolatase test pending - Flu/Tdap given? - Plan for GBS culture at 36 weeks - Review of delivery plans 12/23/24 -?-?-?-?-?-?-?-?-?-?-?-?- 36w 0d 91.229 kg 133/82 at 36 weeks gestation, presents for routine care. History of prior ; repeat scheduled for 01/18/25. No contractions, reports active FM and overall doing well. Initially declined but ultimately consented to GBS swab after discussion. Plan: Perform GBS swab Continue routine care Scheduled 01/18/25 Plan for 2-day stay 1-week follow-up precautions reviewed EVERT Calculator Estimated Delivery Date Method Current WG Current Estimate 01/20/25 LMP (Certain) 36w 3d Other Estimates 01/23/25 Ultrasound #1 36w 0d 01/19/25 Ultrasound #2 36w 4d Exam General General Appearance: alert, in no apparent distress and healthy appearing Head Head exam: atraumatic Neck Neck exam: Present normal inspection and trachea midline Chest Chest inspection: Present normal inspection and symmetric chest wall rise External exam: Present normal external exam; Absent tenderness Neuro Neurological exam: Present oriented X3 Psych Psychiatric exam: Present normal affect and normal mood Office Procedures OB Clinic LOC & Office Proc's Nursing/Assessment Patient Status: Established Patient OB Clinic Nursing Assessment: Medication Reconciliation, Update PMH in EMR and Vital Signs OB Clinic Coordination of Care: Complex Care and Chronic Disease 1-5, Consent,records obtained, informed consent, Education Simp Pt/Fam, Lab and Imaging orders, Results/Orders obtained and Staff clarify orders Special Needs: Heart tones Miscellaneous Interventions: Pelvic Culture Established Patient Charge Established Patient Point Assignment: 145 Established Patient Point Charge: EP Level 4 (120-155) Assessment & Plan Diagnosis / Problem List (1) care, subsequent in third trimester: Status: Acute (2) Encounter for maternal care for low transverse scar from previous delivery: Status: Acute Plan Problem List - , third trimester - History of previous section - Group B Streptococcus screening pending Assessment - at 36 weeks gestation - History of previous section - Scheduled for repeat on 01/18/2025 - No current contractions - movement reported as active - Patient initially refusing Group B Streptococcus (GBS) swab Plan - Perform Group B Streptococcus (GBS) swab - Scheduled for repeat section on 01/18/2025 - Two-night hospital stay post- section (may extend if medical issues arise) - Schedule one-week follow-up appointment Educated the patient on labor signs, including regular contractions, lower back pain, and changes in vaginal discharge. Advised avoiding heavy lifting and getting adequate rest. Instructed to contact the office immediately if any signs occur. Discussed the importance of a balanced diet rich in folic acid, iron, and calcium, and provided a list of recommended and to-avoid foods. Emphasized avoiding high-sugar foods to reduce gestational diabetes risk. Encouraged hydration and frequent, small meals for energy..
== END 2024-12-23 09:40 | disposition home or self-care (01) ==
LOC: HODSOBC 08:54
PROVIDERS: PCP Obstetrics & Gynecology; Referring Provider Obstetrics & Gynecology; Supervising Provider Obstetrics & Gynecology; Visit Provider Obstetrics & Gynecology
DX: O09.293 Supervision of pregnancy with other poor reproductive or obstetric history, third trimester (principal); Z3A.36 36 weeks gestation of pregnancy; O34.211 Maternal care for low transverse scar from previous cesarean delivery
CPT/HCPCS: 99214; G0463

== ENCOUNTER 2025-01-05 23:06 | Inpatient (IN) | payer MEDICAID, SELFPAY ==
[2025-01-05] VITALS (7 sets, daily range): BP systolic 134–136; BP diastolic 77–84; PULSE 105–128; O2SAT 97–100; BMI 38.0
[2025-01-06] VITALS (131 sets, daily range): BP systolic 98–140; BP diastolic 56–88; PULSE 80–125; RESP 13–99; TEMP 36.6–36.9; O2SAT 96–100; BMI 38.2
--- NOTE | 2025-01-06 00:18 | PD.LDHP ---
Documentation for date of: 01/06/25 OB Labor/Induct. HPI History of Present Illness : 3 pregnancies: 1 Living children: 1 History of Abortions: Spontaneous and Elective: 1 History of sections: Yes EVERT: 01/20/25 Gestational Age (weeks): 38 Gestational Age (days): 0 History of present illness: 19 y/o with IUP at 38 wks with care [facility] presents to [facility] complaining of persistent contractions. She denies any leaking or bleeding. She reports normal movement. She has a prior C/S and elects to undergo a repeat C/S. Comments: LMP 04/15 TVS 12w5d on 07/16/24 EDC 01/20/25 by LMP History of Present Dating criteria: LMP confirmed by 1st trimester US Adequate Care: Yes Narrative: Prior C/S elects repeat C/S Past Medical History Surgical History SURGICAL: Positive Section Meds Home Medications and Allergies Allergies Allergy/AdvReac Type Severity Reaction Status Date / Time No Known Allergies Allergy Verified 01/06/25 02:18 OB Exam Physical Exam Vital signs: Pulse BP Pulse Ox 105 H 136/84 H 99 01/05/25 23:50 01/05/25 23:50 01/06/25 00:15 OB Results Labs 01/06/25 00:16 01/06/25 00:16 Impressions Impression: Intrauterine at 38 weeks Previous delivery elects repeat delivery Early labor v. False Labor Plan monitor for cervical change and if so plan delivery
[2025-01-06 00:33] LABS: Collection Type, Urine Clean Catch
[2025-01-06 00:39] LABS: Basophils # (Auto) 0.1 Thou/mm3 (0.0-0.2); Basophils % (Auto) 1 % (0-2.5); Eosinophils # (Auto) 0.5 Thou/mm3 (0.0-0.5); Eosinophils % (Auto) 4 % (0-10); Hematocrit 30.7 % (36.0-46.0); Hemoglobin 9.8 g/dL (12.0-16.0); Immature Granulocytes % (Auto) 1 % (0-0); Immature Granulocytes Auto 0.15 Thou/mm3 (0.00-0.00); Lymphocytes # (Auto) 3.3 Thou/mm3 (1.0-4.8); Lymphocytes % (Auto) 26 % (10-50); Mean Corpuscular HGB Conc 31.9 g/dl (31.0-37.0); Mean Corpuscular Hemoglobin 23.3 pg (25.0-35.0); Mean Corpuscular Volume 73 fL (80-100); Monocytes % (Auto) 8 % (0-12); Neutrophils # (Auto) 7.9 Thou/mm3 (1.8-7.7); Neutrophils % (Auto) 61 % (37-80); Nucleated Red Blood Cell % 0 /100 WBC (0); Platelet Count 292 Thou/mm3 (140-440); RDW Standard Deviation 49.9 fL (36.4-46.3); Red Blood Count 4.21 Miln/mm3 (4.00-5.20)
[2025-01-06 01:04] LABS: Alanine Aminotransferase < 7 U/L (10-49); Albumin, Serum 3.8 gm/dL (3.5-5.0); Albumin/Globulin Ratio 1.5 (1.2-2.2); Alkaline Phosphatase 156 U/L (46-116); Anion Gap 13 (7-16); BUN/Creatinine Ratio 14 Ratio (12-20); Bilirubin,Total 0.2 mg/dL (0.3-1.2); Blood Urea Nitrogen 7 mg/dL (9-23); Calcium 9.4 mg/dL (8.3-10.6); Calcium (Corrected) 9.6 mg/dL (8.5-10.1); Carbon Dioxide 20.3 mMol/L (20.0-31.0); Chloride 105 mMol/L (98-107); Creatinine (Component) 0.5 mg/dL (0.6-1.3); Estimated Creatinine Clearance 186.6 mL/min (>60); Globulin 2.5 gm/dL (2.3-3.5); Glucose 95 mg/dL (74-106); Osmolality,Calculated 273 (275-295); Potassium 4.2 mMol/L (3.4-5.1); Sodium 138 mMol/L (136-145); Total Protein 6.3 gm/dL (5.7-8.2); eGFR > 60 See Note
[2025-01-06 01:08] LABS: Amorphous Crystals,Urine Present (Absent); Bacteria,Urine 1+; Bilirubin,Urine Negative (Negative); Blood,Urine Negative (Negative); Clarity,Urine Turbid (Clear/Hazy); Color,Urine Lt-Yellow (Lt Yel-Yel); Creatinine,Random Urine 54 mg/dL (30-125); Glucose, Urine Negative (Negative); Ketones,Urine Negative (Negative); Leukocyte Esterase,Urine Positive (Negative); Nitrite,Urine Negative (Negative); Protein Total, Random Urine 12 mg/dL (1-14); Protein,Urine Negative (Neg - Trace); RBC,Urine 2 /hpf (0-3); Specific Gravity,Urine 1.013 (1.001-1.035); Squamous Epithelial Cell,Urine 6 /hpf (0-5); Urobilinogen,Urine Negative mg/dL (0.0-1.0); WBC,Urine 6 /hpf (0-5)
[2025-01-06 01:11] LABS: Fibrinogen 511 mg/dL (175-375); INR 0.9 (0.9-1.3); Partial Thromboplastin Time 26.4 Seconds (22.0-36.0); Prothrombin Time 10.3 Seconds (9.0-12.2)
[2025-01-06] MEDS: RINGERS LACTATED 1000 ML 1,000 ML 999 ML IV (01:24)
[2025-01-06 01:31] LABS: Syphilis Nonreactive (Nonreactive)
[2025-01-06] MEDS: ceFAZolin/D5W 2 GM IV 2 GM/100 ML BAG IV (10:32)
[2025-01-06] MEDS: CITRIC ACID/SODIUM CITR 15 ML UDC (BICITRA) 30 ML PO (10:33)
[2025-01-06] MEDS: FAMOTIDINE INJ 10 MG/ML VIAL 2 ML 20 MG IV (10:33)
--- NOTE | 2025-01-06 11:29 | PD.GYNPROC ---
Operative Note - [employer] Procedure Date of procedure: 01/06/25 Procedure Performed: Repeat low-transverse section Indication: 19-year-old G2, P1 @38w Previous x 1 Anesthesia type: Spinal Procedure description: Informed consent was obtained and the patient was taken to the operating room. Identity was confirmed by double identifiers and she was placed on the operating table. Spinal anesthesia was administered and she was positioned in the supine position. The abdomen and perineum were prepped in the usual sterile fashion and a Vallejo catheter was placed to continuous drainage. Sterile drapes were applied. The incision site was tested for adequacy of anesthesia. A Pfannenstiel skin incision was made with a scalpel and carried to the subcutaneous fat up to the rectus fascia. The rectus fascia was incised on either side of the midline and the incisions were extended bilaterally. The fascia was gently dissected off the ventral surface of the rectus muscle both superiorly and inferiorly. The rectus bellies were gently in the midline and the peritoneum was identified and entered bluntly using the surgeon's finger. The peritoneal opening was now stretched to create an adequate opening for access to the uterus. Ottoniel O-ring retractor was placed for adequate visualization. The anterior surface of the uterus was palpated. The bladder reflection was identified and a Moses Gaines low transverse uterine incision was made in the lower uterine segment taking care to avoid the bladder. Uterine entry was accomplished bluntly and the opening was stretched to create adequate room. The amniotic membranes were now ruptured and clear amniotic fluid was released. The fetus was noted to be in the vertex position. The head was gently elevated out of the maternal pelvis and single loop of nuchal cord was found around the neck. The cord was released and the rest of the shoulders and body were delivered by gentle fundal pressure. Umbilical cord was doubly clamped, divided and the infant was handed over to the waiting team. Cord gas samples were obtained. The placenta was delivered by gentle traction on the umbilical cord. The interior of the uterus was now thoroughly cleaned of all blood and debris and membranes. The hysterotomy angles were grasped by a pair of Allis clamps and the hysterotomy was closed using 1 Monocryl suture in 2 layers. The first layer was used to approximate the muscle in a running locked fashion, the second layer was used to approximate the thickness of the myometrium and uterine serosa in an imbricated manner. Once the repair was completed the hysterotomy was inspected and noted to be adequately hemostatic. The hysterotomy was once again inspected and hemostasis was noted to be satisfactory. The Ottoniel retractor was now removed. The peritoneal edges were re approximated. The rectus muscles were re approximated. The rectus fascia was now repaired using 0 Vicryl suture in a running fashion. The subcutaneous layer was now copiously irrigated using warm normal saline. All bleeding points were cauterized using the Bovie. The subcutaneous fat was closed using 3-0 Vicryl. The skin was closed using 4-0 Monocryl in a subcuticular fashion. The skin was cleaned and a sterile dressing was applied. The patient was now undraped, the abdomen and back were thoroughly cleaned and she was transferred to the recovery room in a stable and awake condition. The patient tolerated the entire procedure well. No complications were encountered. All instrument, sponge and lap counts were correct x2. Estimated blood loss (ml): 600 Complications: none Surgical staff Operation Date: 01/06/25 10:45 Case Staff TRIPE FINISHER: Mark Carrera RNbicycle designer: Demetrio Kay Diagnosis Discharge Diagnosis (1) care, subsequent in third trimester: Status: Acute (2) Encounter for maternal care for low transverse scar from previous delivery: Status: Acute Problem List Completed Was Problem List Reviewed/Reconciled?: Yes
[2025-01-06] MEDS: OXYTOCIN in NS 20 units 20 UNIT/1,000 ML BAG 125 UNIT IV ×2 (13:26→22:09)
[2025-01-06] MEDS: ONDANSETRON INJ 2 MG/ML INJ 2 ML 4 MG IV (13:30)
[2025-01-07] VITALS (8 sets, daily range): BP systolic 104–127; BP diastolic 61–78; PULSE 82–116; RESP 16–18; TEMP 36.3–36.8; O2SAT 97–98
[2025-01-07 06:01] LABS: Basophils % (Auto) 0 % (0-2.5); Eosinophils # (Auto) 0.4 Thou/mm3 (0.0-0.5); Eosinophils % (Auto) 3 % (0-10); Hematocrit 28.8 % (36.0-46.0); Hemoglobin 9.2 g/dL (12.0-16.0); Immature Granulocytes % (Auto) 1 % (0-0); Lymphocytes # (Auto) 2.2 Thou/mm3 (1.0-4.8); Lymphocytes % (Auto) 18 % (10-50); Mean Corpuscular HGB Conc 31.9 g/dl (31.0-37.0); Mean Corpuscular Hemoglobin 23.5 pg (25.0-35.0); Mean Corpuscular Volume 74 fL (80-100); Monocytes # (Auto) 1.1 Thou/mm3 (0.0-0.8); Monocytes % (Auto) 9 % (0-12); Neutrophils # (Auto) 8.4 Thou/mm3 (1.8-7.7); Neutrophils % (Auto) 69 % (37-80); Nucleated Red Blood Cell % 0 /100 WBC (0); Platelet Count 236 Thou/mm3 (140-440); RDW Standard Deviation 49.6 fL (36.4-46.3); Red Blood Count 3.91 Miln/mm3 (4.00-5.20); White Blood Count 12.2 Thou/mm3 (3.6-11.0)
--- NOTE | 2025-01-07 06:30 | PD.ADDHP ---
Addendum History & Physical Addendum Date of report being addended: 01/07/25 Narrative: PE VSS afebrile HEENT wnl Lungs CTA Heart RRR AbD: gravid term size Pelvic: see rn exam Ext: nontender.
--- NOTE | 2025-01-07 08:00 | PC.NURSE ---
verbal consent given to receive Rhogam shot.
[2025-01-07] MEDS: DOCUSATE SOD 100 MG CAPSULE PO (08:09)
[2025-01-07] MEDS: HYDROcodone/APAP 5/325 TABLET 1 TAB PO ×2 (08:10→13:02)
--- NOTE | 2025-01-07 08:15 | PD.LDPPPRG ---
Subjective Subjective Interval history: Patient is a 19-year-old G2 now P2002 status post repeat in early labor 01/06/[address] Finnegan. Patient is sitting up breast-feeding. She states her pain is controlled she is tolerating a general diet. She has not been up to shower yet. She was anemic with a hemoglobin at 9.8 prior to discharge her hemoglobin 6 hours later was 9.2 I will recheck another hemoglobin this morning. Patient denies heavy bleeding fevers chills nausea or vomiting Exam Vital Signs Temp Pulse Resp BP Pulse Ox O2 Del Method 97.9 F 111 H 18 127/78 97 Room Air 01/07/25 08:04 01/07/25 08:04 01/07/25 08:04 01/07/25 08:04 01/07/25 08:04 01/07/25 04:30 Narrative Exam Fundus firm nontender dressing clean dry and intact extremities showed 2+ edema of her ankles Objective Labs 01/07/25 05:15 01/06/25 00:16 Labs: Laboratory Results - last 24 hr 01/06/25 01/06/25 01/07/25 02:12 16:54 05:15 WBC 12.2 H RBC 3.91 L Hgb 9.2 L Hct 28.8 L MCV 74 L MCH 23.5 L MCHC 31.9 RDW Std Deviation 49.6 H Plt Count 236 D Neut % (Auto) 69 Lymph % (Auto) 18 Woodruff % (Auto) 9 Eos % (Auto) 3 Baso % (Auto) 0 Neut # (Auto) 8.4 H Lymph # (Auto) 2.2 Woodruff # (Auto) 1.1 H Eos # (Auto) 0.4 Baso # (Auto) 0.0 Immature Gran # (Auto) 0.10 H Absolute Nucleated RBC 0.00 Immature Gran % 1 H Nucleated RBC % 0 Blood Type O Negative Rho(D) IG Studies Ready Antibody Screen NEGATIVE Maternal Bleed Negative Crossmatch See Detail Blood Bank Wristband ID Yes Assessment & Plan Problem List (1) care, subsequent in third trimester: Status: Acute (2) Encounter for maternal care for low transverse scar from previous delivery: Problem details: Postop day #1 in stable condition. Recheck hemoglobin as it was 9.8 at the beginning 9.26 hours later. Ambulate shower. If patient is doing well probable discharge tomorrow morning. Status: Acute Time Spent With Patient Time: Total time spent is greater than 50% in coordination of care (as documented) at patient's floor/unit and/or counseling patient:
[2025-01-07] MEDS: IBUPROFEN TAB 400 MG TABLET 800 MG PO ×2 (09:49→17:24)
[2025-01-07] MEDS: SIMETHICONE 80 MG CHEW PO ×2 (13:12→20:43)
--- NOTE | 2025-01-07 15:42 | PC.SS ---
SS conducted bedside contact with the patient to address nursing referral indicating patient had history of depression and anxiety. ?SS introduced self and role.? SS asked for permission to speak in front of family member. Patient agreed. SS discussed with patient basis of referral.? 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 Patient states she was diagnosed with this since she was between 4 and 5 years old. Patient was seen by [facility] and seen a psychiatrist. Patient was on antidepressants and was seeing a therapist. Once she found out she was , she stopped taking medication and therapy services.? She now knows she will be returning to her therapist. Patient, currently, has no impairments. Patient has no current thoughts of harming herself or others.? No other history of documented mental health. FOB, Barrington Jacinto, and resides in the home. This is patient?s 2nd child. Other child?s age is 2 years old. ?, baby girl, was born yesterday via . care was completed with Jessica Easton NP.? Patient was consistent with . Patient plans on breast feeding. Patient is aligned with WIC, [place] assistance and Food stamps. Patient denies history of domestic violence. Patient verbalized she did have CPS involvement in 2022 but it has been closed since 2023. Patient has all resources to include: car seat, clothing and infant supplies.? front services agent provided resources to include:? [employer], Warm Line and community numbers. SS discussed in further detail emotional support and answered all questions appropriately. Patient verbalized she has support from her and his family. ?Patient states she will be temporarily staying with her mother in law at:? [address] [facility]. No further intervention required at this time, psych social worker will be available to address any further concerns. SS updated bedside nurse.
[2025-01-07] MEDS: FUROSEMIDE INJ 10 MG/ML 4ML VIAL 40 MG IVP (16:33)
[2025-01-07] MEDS: SODIUM CHLORIDE 0.9% 1000 ML 1,000 ML 500 ML IV (16:35)
--- NOTE | 2025-01-07 19:11 | PC.NURSE ---
Dr. Gould aware pts HR 115 after interventions order, Pt is alert and oriented sitting comfortably in chair, denies chest pain, SOB, or other symptoms. no new orders.
[2025-01-07] MEDS: Milk Of Magnesia Susp 30 ML UDC PO (20:43)
[2025-01-07] MEDS: HYDROcodone/APAP 5/325 TABLET 2 TAB PO (23:00)
[2025-01-08 03:45] VITALS: BP 114/74; PULSE 96; RESP 18; TEMP 37.1; O2SAT 98
[2025-01-08] MEDS: IBUPROFEN TAB 400 MG TABLET 800 MG PO (03:49)
[2025-01-08 05:18] LABS: Basophils # (Auto) 0.1 Thou/mm3 (0.0-0.2); Basophils % (Auto) 1 % (0-2.5); Eosinophils # (Auto) 0.7 Thou/mm3 (0.0-0.5); Eosinophils % (Auto) 6 % (0-10); Hematocrit 27.7 % (36.0-46.0); Immature Granulocytes % (Auto) 1 % (0-0); Immature Granulocytes Auto 0.14 Thou/mm3 (0.00-0.00); Lymphocytes # (Auto) 3.1 Thou/mm3 (1.0-4.8); Lymphocytes % (Auto) 26 % (10-50); Mean Corpuscular Volume 74 fL (80-100); Monocytes % (Auto) 8 % (0-12); Neutrophils # (Auto) 7.3 Thou/mm3 (1.8-7.7); Neutrophils % (Auto) 59 % (37-80); Nucleated Red Blood Cell % 0 /100 WBC (0); Platelet Count 260 Thou/mm3 (140-440); RDW Standard Deviation 50.5 fL (36.4-46.3); Red Blood Count 3.74 Miln/mm3 (4.00-5.20); White Blood Count 12.3 Thou/mm3 (3.6-11.0)
[2025-01-08 05:22] LABS: Hemoglobin 8.6 g/dL (12.0-16.0)
--- NOTE | 2025-01-08 07:48 | PD.LDPPPRG ---
Subjective Subjective Interval history: Delivery type: Patient doing well this morning. No acute complaints. Ambulating, tolerating p.o. and voiding without difficulty. HTN/Pre-Eclampsia screen: No chest pain, shortness of breath, headache, visual changes, epigastric or right upper quadrant pain. Breast-feeding, lochia diminishing. Bowel: Flatus+/ BM+ Exam Vital Signs Temp Pulse Resp BP Pulse Ox O2 Del Method 98.7 F 96 18 114/74 98 Room Air 01/08/25 03:45 01/08/25 03:45 01/08/25 03:45 01/08/25 03:45 01/08/25 03:45 01/08/25 03:45 Constitutional Constitutional: no acute distress Routine HEENT Exam Head: Present normocephalic and atraumatic Eye: Present EOMI and PERRL ENT: Present mucous membranes moist Routine Neck Exam Neck: Present supple and trachea midline Routine Respiratory Exam Respiratory: Present chest non-tender, lungs clear, normal breath sounds and no resp distress Routine Cardiovascular Exam Cardiovascular: Present RRR Routine Abdominal Exam Abdominal: Present soft and normoactive bowel sounds Routine Extremities Exam Extremities: Present full ROM Routine Skin Exam Skin: Present intact, dry and warm Routine Neurological Exam Neurological: Present alert, oriented X3 and CN II-XII intact Routine Psychiatric Exam Psychiatric: Present normal affect and normal thought process Objective Labs 01/08/25 04:52 01/06/25 00:16 Labs: Laboratory Results - last 24 hr 01/06/25 01/08/25 02:12 04:52 WBC 12.3 H RBC 3.74 L Hgb 8.6 L Hct 27.7 L MCV 74 L MCH 23.0 L MCHC 31.0 RDW Std Deviation 50.5 H Plt Count 260 Neut % (Auto) 59 Lymph % (Auto) 26 [place] % (Auto) 8 Eos % (Auto) 6 Baso % (Auto) 1 Neut # (Auto) 7.3 Lymph # (Auto) 3.1 [place] # (Auto) 1.0 H Eos # (Auto) 0.7 H Baso # (Auto) 0.1 Immature Gran # (Auto) 0.14 H Absolute Nucleated RBC 0.00 Immature Gran % 1 H Nucleated RBC % 0 Blood Type O Negative Rho(D) IG Studies Ready Antibody Screen NEGATIVE Crossmatch See Detail Blood Bank Wristband ID Yes Assessment & Plan Problem List (1) care, subsequent in third trimester: Status: Acute (2) Encounter for maternal care for low transverse scar from previous delivery: Status: Acute (3) delivery delivered: Status: Acute Assessment and plan: PPD/POD#2 1. Continue routine care 2. Transition to PO meds. 3. Encourage to ambulate/ breast-feed 4. Anticipate discharge home today. Time Spent With Patient Time: Total time spent is greater than 50% in coordination of care (as documented) at patient's floor/unit and/or counseling patient:
--- NOTE | 2025-01-08 07:49 | PD.LDDS ---
DS: Providers Provider Date of admission: 01/06/25 00:07 Primary care physician: Physician No Primary/Family Admitting Provider: Martinez Lee MD Attending Provider on Admission: Charlie Finnegan MD Consults: 01/06/25 13:21 Referral Routine Comment: Attending Provider on DC: Charlie Finnegan MD Discharging Provider: Charlie Finnegan MD DS: Diagnosis Discharge Diagnosis (1) delivery delivered: Status: Acute (2) care, subsequent in third trimester: Status: Acute (3) Encounter for maternal care for low transverse scar from previous delivery: Status: Acute Problem List Completed Was Problem List Reviewed/Reconciled?: Yes Summary/Hosp Course Brief History: 19 y/o with IUP at 38 wks with care [facility] presents to [facility] complaining of persistent contractions. She denies any leaking or bleeding. She reports normal movement. She has a prior C/S and elects to undergo a repeat C/S. Peripartum Data Delivery Method: Low Transverse Episiotomy Description: None Procedures: Procedures Operation Date: 01/06/25 10:45 Actual Procedure Side Surgeon p in OB Charlie Finnegan MD Time Spent with Patient Time attestation: Total time spent providing and/or coordinating discharge services: Exam Vital Signs Temp Pulse Resp BP Pulse Ox O2 Del Method 98.7 F 96 18 114/74 98 Room Air 01/08/25 03:45 01/08/25 03:45 01/08/25 03:45 01/08/25 03:45 01/08/25 03:45 01/08/25 03:45 Discharge Plan Plan Patient Disposition: HOME (Self Care) Patient condition on transfer: Stable Prescriptions/Referrals Prescriptions/Med Rec: New hydrocodone-acetaminophen 5-325 mg Tablet 1 tab PO Q6HR MDD 4 PRN (Reason: Patient rated pain 9 to 10) 5 Days Qty: 20 0RF ibuprofen 400 mg Tablet 800 mg PO Q8HR PRN (Reason: Pain Scale 4-6 (Moderate) 10 Days Qty: 40 0RF docusate sodium [Stool Softener] 100 mg capsule 100 mg PO QDAY 30 Days Qty: 30 0RF Continued ferrous sulfate 325 mg (65 mg iron) tablet,delayed release (DR/EC) 325 mg PO BID 90 Days Qty: 180 3RF Plus 29 mg iron- 1 mg tablet 1 tab PO QDAY 90 Days Qty: 90 3RF prenat.vits,onel,ynv-fzcg-chkjs Tablet 1 tab PO QDAY Qty: 30 0RF Referrals: Charlie Finnegan MD [Physician] - No Primary/Family,Physician [Primary Care Provider] - Patient/Caregiver Discharge Instructions Meds to Beds: Yes Discharge Activity: activity as tolerated Education Materials: After Delivery Concerns, Breast Care After , After a , C Section Dc, Feel Healthy After Print Language: Djiboutian Stand Alone Forms: Sandra Award Info., Patient Portal Info Letter, DC from Surgery Discharge Order Discharge Orders: Discharge (Routine); Ordered 01/08/25 Ordered By: Charlie Finnegan Planned Discharge Date 01/08/25
[2025-01-08 08:00] VITALS: BP 120/81; PULSE 85; RESP 17; TEMP 36.7; O2SAT 98
--- NOTE | 2025-01-08 08:00 | PC.LAC ---
Follow up visit with mom, she states that feedings are going fine. Better than yesterday. At this time baby is in arms, clothed and asleep. Dad asleep at this time. Mom states she just fed baby. Mom has flat affect, she doesn't show a lot of emotion and or care. encouraged mom to keep putting baby to breast. But if baby not willing to latch for her to continue pumping to use her milk to supplement. gave good list for increased breast milk health. Mom nodded head in agreement.
[2025-01-08] MEDS: SIMETHICONE 80 MG CHEW PO (09:15)
[2025-01-08] MEDS: DOCUSATE SOD 100 MG CAPSULE PO (09:15)
[2025-01-08] MEDS: Milk Of Magnesia Susp 30 ML UDC PO (09:15)
[2025-01-08 10:46] VITALS: BP 126/83; PULSE 92
[2025-01-08] MEDS: FUROSEMIDE INJ 10 MG/ML 4ML VIAL 40 MG IVP (10:46)
== END 2025-01-08 13:42 | disposition home or self-care (01) | DRG 540 ==
LOC: S4SX 01-06 13:08 → S4NX 01-07 07:14
PROVIDERS: Obstetrics & Gynecology; Admitting Provider Specialist; Visit Provider Obstetrics & Gynecology
PROC: 10D00Z1 Extraction of Products of Conception, Low, Open Approach (ICD-10-PCS; CPT 59514; principal; 2025-01-06 10:30)
DX: O34.211 Maternal care for low transverse scar from previous cesarean delivery (principal); Z37.0 Single live birth; Z3A.38 38 weeks gestation of pregnancy; O69.81X0 Labor and delivery complicated by cord around neck, without compression, not applicable or unspecified; O99.02 Anemia complicating childbirth
CPT/HCPCS: 36415; 59025; 59899; 80053; 81001; 82570; 84156; 84550; 85025; 85384; 85461; 85610; 85730; 86780; 86850; 86900; 86901; 86923; 94762; A4314; A4649; J0689; J1885; J1938; J2250; J2274; J2371; J2405; J2590; J2790; J3490; J7030; J7120; A9270; J2270

== ENCOUNTER 2025-02-16 10:58 | Outpatient (AMB) | payer MEDICAID, SELFPAY ==
[2025-02-16 11:19] VITALS: BP 123/81; PULSE 75; RESP 15; TEMP 36.4; O2SAT 96; BMI 32.0
--- NOTE | 2025-02-16 11:19 | AMBOBPPN_ITS ---
Vital Signs 02/16/25 11:19 Height 1.57 m Height Method Stated Weight 79.492 kg Weight Measurement Method Standing Scale BMI 32.0 BP 123/81 Blood Pressure Source Automatic Cuff Blood Pressure Location Left Upper Arm Position Sitting Respiration 15 Pulse 75 Pulse Source Monitor Temp 97.5 F Temp Source Oral Pulse Oximetry (%) 96 Oxygen Delivery Method Room Air Allergies/Home Meds Allergies & Medications Allergies No Known Allergies Allergy (Verified 02/16/25 11:20) Medication Reconciliation prenat.vits,onel,syl-dkmt-tmoab 1 tab PO QDAY #30 tabs 03/02/22 [Rx Confirmed 02/16/25] ferrous sulfate 325 mg (65 mg iron) tablet,delayed release 325 mg PO BID 90 days #180 tabs 11/11/24 [Rx Confirmed 02/16/25] vitamins with calcium no.72-iron 29 mg-folic acid 1 mg tablet ( Plus) 1 tab PO QDAY 90 days #90 tabs 11/11/24 [Rx Confirmed 02/16/25] Intake Visit Data Collection New Patient or Established: Established Patient (seen at [facility] within 3 years) Reason for Visit:: POST Seen by Clinical Staff ONLY (RN/MA): No Experimental Box Tester Required: No Do You Feel Safe at Home: Yes Authorities Contacted: N/A PCP or OBGYN visit in last 3 months: Yes Hx Now: No Are you currently on any form of Control: No Pain Present Currently: No Pain Scale Used: Osman-Marte/Numerical Pain scale:: 0 Smoking Status Smoking Status: Never smoker ENGINE ROOM HELPER: Past Medical History Past Medical History: No Hx Neurological Disorders, No Hx Hyperthyroidism, No Hx Breast Cancer, No Hx Cardiac Disorders, No Hx Cancer, No Hx Blood Disorders, Yes Hx Anemia, No Hx Gastrointestinal Disorders, No Hx Renal Disease, No Hx Diabetes Mellitus Type 1, No Hx Diabetes Mellitus Type 2 and Yes Psychiatric Problems Questionnaires Covid-19 Vaccine Questionnaire Has patient been vacinated for Covid-19 Have you been vacinated for Covid-19: Yes Social History Living Situation History Lives With: Family Housing: Apartment Tobacco History Smoking Status: Never smoker Second Hand Smoke Exposure: No Alcohol History Alcohol Intake: Never Domestic Abuse History Do You Feel Safe at Home: Yes EPDS - PP Depression Screening [place] Pospartum Depression Screen I have been able to laugh and see the funny side of things: (0) As much as I always could I have looked forward with enjoyment to things: (0) As much as I ever did I have blamed myself unnecessarily when things went wrong: (0) No, never I have been anxious or worried for no good reason: (0) No, not at all I have felt scared or panicky for no very good reason: (0) No, not at all Things have been getting on top of me: (0) No, I have been coping as well as ever I have been so unhappy that I have had difficulty sleeping: (0) No, not at all I have felt sad or miserable: (0) No, not at all I have been so unhappy that I have been crying: (0) No, never The thought of harming myself has occurred to me: (0) Never Total Score: EPDS Score: Referral is indicated for score of 9 or more, suicidal, or if provider believes patient is depressed regardless of score.: 0 EPDS completed yes Care OB Visit Log OB Flowsheet Initial Weight: Not Recorded Date -?-?-?-?-?-?-?-?-?-?-?-?- EGA Weight BP Alb Glu CTX Pres Fundal ht FHR Mov Dilation Station Effacement Hx Notes Visit Note 11/11/24 -?-?-?-?-?-?-?-?-?-?-?-?- 30w 0d 84.595 kg 114/76 absent 30 146 ac tive This is a 19-year-old 3 para 1 she is 30 weeks 1 day today based on LMP. She comes for her first visit to [facility]. Her LMP is April 15, 2024. And this gives a due date of January 20, 2025. History of previous x 1. Patient has a history anxiety and depression and she sees behavioral health for that. She is currently not taking any psych meds. She denies social habits. My plan is to order her ultrasound with maternal- medicine. I ordered 1 hour Glucola. Tdap today. Refilled vitamins she will take 1 p.o. daily. And then I refilled her iron 325 mg she takes twice a day. Discussed high iron foods and precautions. Patient reports that she did get RhoGAM with this at her first visit with Dr. Collins at [facility]. PTL precautions reviewed with patient. And will refer patient to OB for previous C- section management 12/02/24 -?-?-?-?-?-?-?-?-?-?-?-?- 33w 0d 89.925 kg 126/79 absent cephalic 30 141 active fetus active, no PTL complaints. increased back pain,pressure, fetus active. c/o increased pulse rate. Pulse today is 80, regular, no resp distress, fkc bid. patient wants to deliver at [facility], discussed tranc=sfer of care with patient. fkc bid. rtc 2 week, for repeat c/s 12/15/24 -?-?-?-?-?-?-?-?-?-?-?-?- 34w 6d 91.285 kg 120/71 Subjective: Rosie Morton, , at 35 weeks GA, pr esents for routine care. No CTX/LOF/VB. Reports . No EUBANKS/VC/epigastric pain. History of one previous c- section, Rh-negative blood type, lab slip given for glucola test not yet performed. Objective: Fundal height: 35, FHT: 158-160, Positio n: unknown Assessment & Plan: Assessment & Plan: - Reassurance, normal course - Routine labs: glucolatase test pending - Flu/Tdap given? - Plan for GBS culture at 36 weeks - Review of delivery plans 12/23/24 -?-?-?-?-?-?-?-?-?-?-?-?- 36w 0d 91.229 kg 133/82 at 36 weeks gestation, presents for routine care. History of prior ; repeat scheduled for 01/18/25. No contractions, reports active FM and overall doing well. Initially declined but ultimately consented to GBS swab after discussion. Plan: Perform GBS swab Continue routine care Scheduled 01/18/25 Plan for 2-day stay 1-week follow-up precautions reviewed EVERT Calculator Estimated Delivery Date Method Current WG Current Estimate 01/20/25 LMP (Certain) 43w 6d Other Estimates 01/23/25 Ultrasound #1 43w 3d 01/19/25 Ultrasound #2 44w 0d HPI Interval History: 19-year-old 2 para 2 here for 6-week visit patient was a repeat with history of a previous section x 1. She had another girl weighing 6 pounds 8. On January 06, 2025. Patient reports that she is breast- feeding and occasionally gives bottle. She is also pumping denies any problems with breast-feeding. She is not sexually active. Patient thinks she would like to try the Nexplanon but is not ready for control yet father the baby is here with her and he is helpful and supportive. Patient has support and help from her family. The sibling is adjusting. Patient has a history of depression and anxiety. She is not taking any medications right now. She had an appointment with behavioral health but she missed that appointment because of a in the family. And patient and partner plan to reschedule that appointment. Today patient is here because [employer] is trying to make go to work and she would like a form filled out saying that she is breast-feeding. Patient reports that she is voiding and having bowel movements. Complains of a backache since the spinal. No other complaints. Patient is happy and is happy breast-feeding. Was or delivery considered high risk: Yes Delivery type: (repeat x1) Was labor induced: no Gestational age at delivery (weeks): 38 Delivery date: 01/06/25 Delivering provider: lenora Delivery complications: No Is patient infant: Yes Is patient sexually active: No Contraception planned: possible nexplanon Review of Systems Review of Systems ROS limited to current ENGINE ROOM HELPER complaints: Yes Exam Narrative Physical exam: euthyroid. both breast soft, nontender, no masses. no mastitis. abdomen soft, non tender, . Low transverse incision, well healed, no s/s of infection. negative homans. 2 + dtr. small lochia General Limitations: no limitations General Appearance: alert, in no apparent distress, comfortable, cooperative, healthy appearing, well developed and well groomed Head Head exam: atraumatic, normocephalic and normal inspection Chest Chest inspection: Present normal inspection and symmetric chest wall rise Resp Respiratory exam: Present normal lung sounds bilaterally Card Cardiovascular exam: Present regular rate, normal rhythm and normal heart sounds Psych Psychiatric exam: Present normal affect and normal mood Office Procedures OB Clinic LOC & Office Proc's Nursing/Assessment Patient Status: Established Patient OB Clinic Nursing Assessment: Medication Reconciliation, Update PMH in EMR and Vital Signs OB Clinic Coordination of Care: Complex Care and Chronic Disease 1-5, Consent,records obtained, informed consent, Education Simp Pt/Fam, Lab and Imaging orders, Results/Orders obtained and Staff clarify orders Established Patient Charge Established Patient Point Assignment: 105 Established Patient Point Charge: EP Level 3 (80-115) Post Follow-up Visit Post Follow up Visit: Yes Assessment & Plan Diagnosis / Problem List (1) 6 weeks follow-up: Status: Acute Plan no sex, reviewed control methods and nexplanon. continue PNV, OK to walk, no heavy lifting. advised patient to schedule appointment with her provider for persistent back pain. patient and partner were advised to r/s her appointment with . Both stated they would. rtc 4 week control Care Reviewed delivery summary and any complications: Yes Uterus involuted to: 3 below umb Perineal / incision healing noted: Yes Screened for depression: Yes Depression counseling provided: Yes Discussed family planning & contraception: Yes Contraception planned: possible nexplanon Counseling on safe resumption of sexual activity: Yes Counseling on gradual excercise: Yes Discussed and concerns (describe), provided support: Yes Referred to network and threat support specialist: No Counseled on good nutrition, hydration, and self care: Yes Infant care discussed; questions answered: feeding and sleep Follow up: routine/prn and mental health concerns Additional counseling & anticipatory guidance provided: patient will r/s her appointment, no sex, no heavy lifting, start adding exercise. continue PNV, rtc 3 week contraception
== END 2025-02-16 12:06 | disposition home or self-care (01) ==
LOC: HODSOBC 10:58
PROVIDERS: Supervising Provider Advanced Practice Midwife; Visit Provider Advanced Practice Midwife
DX: Z39.2 Encounter for routine postpartum follow-up (principal); Z39.1 Encounter for care and examination of lactating mother; Z30.09 Encounter for other general counseling and advice on contraception; O99.345 Other mental disorders complicating the puerperium; F53.0 Postpartum depression; F41.9 Anxiety disorder, unspecified
CPT/HCPCS: 59430; 99213; G0463

== ENCOUNTER 2025-05-30 14:07 | Emergency (ER) | payer MEDICAID, SELFPAY ==
[2025-05-30 14:08] VITALS: BMI 28.7
[2025-05-30 14:41] VITALS: BP 136/92; PULSE 96; RESP 18; TEMP 38.2; O2SAT 100
[2025-05-30] MEDS: IBUPROFEN TAB 400 MG TABLET 800 MG PO (15:05)
--- NOTE | 2025-05-30 15:05 | PD.EDRME ---
Rapid Medical Screening Exam E Arrival date/time: 05/30/25 14:07 This is a 19-year-old female that comes into the emergency room with complaints of strep throat. Patient states that she was recently diagnosed with strep throat today and was given an injection at the clinic. Patient was told to come to emergency room to have her kidneys patient denies urinary symptoms. Patient also states she does not have a food at home. Patient states she is not can to get food stamps anymore. Checked out. Patient is complaining of back pain. Patient states her children are with their dad. Patient states she has been eating and drinking. Patient states she thinks she is dehydrated. I have greeted and performed a focused initial assessment of this patient. Initial appropriate labs ordered at this time. A comprehensive ED assessment and evaluation of the patient and analysis of all test and completion of medical decision making process will be conducted by additional ED provider. Chief Complaint: General Adult/Misc Complain Time Seen by Provider: 05/30/25 14:23 Vital signs: Vital Signs Temperature 100.8 F H 05/30/25 14:41 Pulse Rate 96 05/30/25 14:41 Respiratory Rate 18 05/30/25 14:41 Blood Pressure 136/92 H 05/30/25 14:41 Pulse Oximetry (%) 100 05/30/25 14:41 Oxygen Delivery Method Room Air 05/30/25 14:41 Exam: Alert and oriented, breathing even and unlabored, flat affect Clinical Impression: Strep throat, possible UTI.
[2025-05-30 15:27] LABS: Collection Type, Urine Voided
[2025-05-30 15:31] LABS: Basophils # (Auto) 0.1 Thou/mm3 (0.0-0.2); Basophils % (Auto) 0 % (0-2.5); Eosinophils # (Auto) 0.2 Thou/mm3 (0.0-0.5); Eosinophils % (Auto) 1 % (0-10); Hematocrit 35.2 % (36.0-46.0); Hemoglobin 11.2 g/dL (12.0-16.0); Immature Granulocytes Auto 0.04 Thou/mm3 (0.00-0.00); Lymphocytes # (Auto) 1.5 Thou/mm3 (1.0-4.8); Lymphocytes % (Auto) 11 % (10-50); Mean Corpuscular HGB Conc 31.8 g/dl (31.0-37.0); Mean Corpuscular Hemoglobin 23.5 pg (25.0-35.0); Mean Corpuscular Volume 74 fL (80-100); Monocytes # (Auto) 0.9 Thou/mm3 (0.0-0.8); Monocytes % (Auto) 7 % (0-12); Neutrophils # (Auto) 11.1 Thou/mm3 (1.8-7.7); Neutrophils % (Auto) 81 % (37-80); Nucleated Red Blood Cell # 0.00 Thou/mm3 (0.00-0.00); Nucleated Red Blood Cell % 0 /100 WBC (0); Platelet Count 263 Thou/mm3 (140-440); RDW Standard Deviation 44.1 fL (36.4-46.3); Red Blood Count 4.77 Miln/mm3 (4.00-5.20); White Blood Count 13.8 Thou/mm3 (3.6-11.0)
--- NOTE | 2025-05-30 15:37 | PC.NURSE ---
STRUCTURAL DRAFTSMAN AT BEDSIDE GIVING PT RESOURCES AT THIS TIME REGARDING FOOD PANTRY/DISTRIBUTION & SUMMER PROGRAMS FOR HER CHILDREN.
[2025-05-30 15:53] LABS: Alanine Aminotransferase 23 U/L (10-49); Albumin, Serum 5.1 gm/dL (3.5-5.0); Albumin/Globulin Ratio 2.1 (1.2-2.2); Alkaline Phosphatase 67 U/L (46-116); Anion Gap 10 (7-16); Aspartate Amino Transferase 20 U/L (0-34); BUN/Creatinine Ratio 15 Ratio (12-20); Bilirubin,Total 0.5 mg/dL (0.3-1.2); Blood Urea Nitrogen 9 mg/dL (9-23); Calcium 10.0 mg/dL (8.3-10.6); Calcium (Corrected) 10.0 mg/dL (8.5-10.1); Carbon Dioxide 25.9 mMol/L (20.0-31.0); Chloride 104 mMol/L (98-107); Creatinine (Component) 0.6 mg/dL (0.6-1.3); Estimated Creatinine Clearance 137.1 mL/min (>60); Globulin 2.4 gm/dL (2.3-3.5); Glucose 91 mg/dL (74-106); Lipase 23 U/L (12-53); Osmolality,Calculated 278 (275-295); Potassium 3.8 mMol/L (3.4-5.1); Sodium 140 mMol/L (136-145); Total Protein 7.5 gm/dL (5.7-8.2); eGFR > 60 See Note
[2025-05-30 16:04] LABS: Amphetamine/Methamp Scrn,U Negative (Negative); Barbiturate Screen,Urine Negative (Negative); Benzodiazepines Screen,Urine Negative (Negative); Benzoylecgonine Screen, Ur Negative (Negative); Fentanyl Screen,Urine Negative (Negative); Opiate Screen,Urine Negative (Negative); THC Screen,Urine Negative (Negative)
[2025-05-30 16:07] LABS: Bacteria,Urine 1+; Bilirubin,Urine 1+ (Negative); Blood,Urine Trace (Negative); Clarity,Urine Turbid (Clear/Hazy); Color,Urine Yellow (Lt Yel-Yel); Culture Indicated,Urine Contaminated; Glucose, Urine Negative (Negative); Ketones,Urine 1+ (Negative); Leukocyte Esterase,Urine Positive (Negative); Nitrite,Urine Negative (Negative); PH,Urine 6.0 (5.0-7.0); Protein,Urine 1+ (Neg - Trace); RBC,Urine 7 /hpf (0-3); Specific Gravity,Urine 1.040 (1.001-1.035); Squamous Epithelial Cell,Urine 43 /hpf (0-5); Transitional Epi Cells,Urine 1 /hpf (0-5); Urobilinogen,Urine 6.0 mg/dL (0.0-1.0); WBC,Urine 16 /hpf (0-5)
[2025-05-30 16:16] LABS: HCG Qualitative,Urine Negative
--- NOTE | 2025-05-30 17:01 | EDNOTE_ITS ---
<Statement entered by Arti Simpson MD - 05/31/25 14:34> As co-signing physician, I was present and available for consult prn. I concur with the plan and care as documented by the midlevel provider. ED General RME/HPI General Chief complaint: General Adult/Misc Complain Stated complaint: SORE THROAT/DIZZY X 2 DAYS, SENT BY [facility] Time Seen by Provider: 05/30/25 14:23 Arrival date/time: 19-year-old female patient with no past medical history, was sent to us from [facility] for evaluation regarding sore throat. She been having sore throat for the last few days severity of symptoms mild. Patient denies any cough denies any fever denies any other complaints patient also is asking for assistance regarding food since patient is not receiving money from [employer]. RME / HPI RME / HPI narrative: 05/30/25 14:07 This is a 19-year-old female that comes into the emergency room with complaints of strep throat. Patient states that she was recently diagnosed with strep throat today and was given an injection at the clinic. Patient was told to come to emergency room to have her kidneys patient denies urinary symptoms. Patient also states she does not have a food at home. Patient states she is not can to get food stamps anymore. Checked out. Patient is complaining of back pain. Patient states her children are with their dad. Patient states she has been eating and drinking. Patient states she thinks she is dehydrated. I have greeted and performed a focused initial assessment of this patient. Initial appropriate labs ordered at this time. A comprehensive ED assessment and evaluation of the patient and analysis of all test and completion of medical decision making process will be conducted by additional ED provider. Exam: Alert and oriented, breathing even and unlabored, flat affect Impression: Strep throat, possible UTI. Related Data Previous Rx's ?Medication ?Instructions ?Recorded prenat.vits,onel,[id number] 1 tab PO QDAY #30 tabs 03/02/22 ferrous sulfate 325 mg (65 mg 325 mg PO BID 90 days #1 80 tabs 11/11/24 iron) tablet,delayed release vitamins with calcium 1 tab PO QDAY 90 days # 90 tabs 11/11/24 no.72-iron 29 mg-folic acid 1 mg tablet ( Plus) ibuprofen 800 mg tablet 800 mg PO Q8H PRN pain #30 t abs 05/30/25 Allergies Allergy/AdvReac Type Severity Reaction Status Date / Time No Known Allergies Allergy Verified 05/30/25 14:10 Review of Systems Review of Systems Narrative Review of Systems: Review of system reviewed and within normal limits except mentioned in HPI ED Exam Narrative Physical exam: VITAL SIGNS: Reviewed. GENERAL APPEARANCE: Alert and interactive, follows commands, no acute distress, HEAD AND FACE: Non-traumatic. ENT: PERRL, pink conjunctivitis, eyelid no trauma, Mucous membrane moist. Tonsils not enlarged no exudates no erythema NECK: Supple, nontender, no nuchal rigidity. CHEST: No tenderness, no crepitus, no paradoxical movement, no retractions. LUNGS: Clear, well ventilated, symmetric, no rales, no wheezing, no ronchi, no stridor, good breath sounds bilaterally. HEART: Regular rate, regular rhythm, no murmur, no gallops. ABDOMEN: Soft, positive bowel sounds, nondistended, no guarding, nontender, no rebound, no masses, RECTAL: Deferred. GENITAL: Deferred. NEUROLOGICAL: Gross motor function intact sensory function intact, Appropriate for age. MUSCULOSKELETAL: low back nontender, full range of motion. EXTREMITIES: Nontender, full range of motion. SKIN: Color pink, dry, no rash, no lacerations, no abrasions, no contusions. LYMPHATICS: Deferred. Course Quality Measures none Orders Category Date Time Status Consult Primary Products Inspectors X1 Care 05/30/25 14:59 Active CBC Stat Lab 05/30/25 13:13 Completed Comprehensive Metabolic Panel Stat Lab 05/30/25 13:13 Completed Drug Screen,Urine Stat Lab 05/30/25 15:14 Completed HCG Qualitative,Urine Stat Lab 05/30/25 15:11 Completed Lipase Stat Lab 05/30/25 13:13 Completed Urinalysis, C/S if Indicated Stat Lab 05/30/25 15:11 Completed Ibuprofen Tab [Motrin Tab] Med 05/30/25 14:57 Discontinued 800 mg PO X1 ONE Vital Signs Vital signs: Vital Signs Temperature 100.8 F H 05/30/25 14:41 Pulse Rate 96 05/30/25 14:41 Respiratory Rate 18 05/30/25 14:41 Blood Pressure 136/92 H 05/30/25 14:41 Pulse Oximetry (%) 100 05/30/25 14:41 Oxygen Delivery Method Room Air 05/30/25 14:41 Discharge Plan Plan Patient Disposition: HOME (Self Care) Discharge Disposition comment: Stable Prescriptions/Referrals Prescriptions/Med Rec: New ibuprofen 800 mg tablet 800 mg PO Q8H PRN (Reason: pain) Qty: 30 0RF No Action ferrous sulfate 325 mg (65 mg iron) tablet,delayed release (DR/EC) 325 mg PO BID 90 Days Qty: 180 3RF Plus 29 mg iron- 1 mg tablet 1 tab PO QDAY 90 Days Qty: 90 3RF prenat.vits,onel,[id number] Tablet 1 tab PO QDAY Qty: 30 0RF Referrals: Conner Costello MD [Primary Care Provider, Family Practice] - In 1 week Problem List Clinical Impression: Sorethroat Patient/Caregiver Discharge Instructions Discharge Activity: activity as tolerated Education Materials: Self-Care for Sore Throats Additional Instructions: Thank you for the opportunity for serving you today. You are stable for discharged . You are advised to: Follow-up with your PCP in 1 to 2 days Return to ED for worsening of symptoms Increase oral fluids Take medication as prescribed Print Language: Slovenian Stand Alone Forms: Sandra Award Info., Patient Portal Info Letter RONN/JAIME Supervising Physician RONN/JAIME Supervising Physician: MD Tatiana MDM Narrative MDM hospital course (for use when minimal MDM required): 19-year-old female patient with no past medical history, was sent to us from [facility] for evaluation regarding sore throat. She been having sore throat for the last few days severity of symptoms mild. Patient denies any cough denies any fever denies any other complaints patient also is asking for assistance regarding food since patient is not receiving money from [employer]. Patient's workup today all came back unremarkable urinalysis is contaminated. Patient was seen by secondary social studies teacher and was given resources for her to get the food Stable for discharge home Medication Administration(s) Medication Administration History Discontinued Medications Ibuprofen (Ibuprofen Tab 400 Mg Tablet) 800 mg PO X1 ONE Stop: 05/30/25 14:58 Last Admin: 05/30/25 15:05 Dose: 800 mg Documented By: PATRICK Diagnosis Differential Diagnosis ED Complaint MDM: Sore throat, pharyngitis, Diagnoses ruled out and/or further discussions: Sore throat
[2025-05-30 17:10] VITALS: BP 128/88; PULSE 88; RESP 16; TEMP 37.2; O2SAT 99
== END 2025-05-30 17:10 | disposition home or self-care (01) ==
PROVIDERS: Nurse Practitioner Family; Emergency Provider Emergency Medicine; PCP Family Medicine
DX: J02.0 Streptococcal pharyngitis (principal); E86.0 Dehydration
CPT/HCPCS: 36415; 80053; 80307; 81001; 81025; 83690; 85025; 99282; A9270